=== PATIENT | female | born 1955 | race African-American/Black ===

== ENCOUNTER 2016-12-11 12:42 | Emergency (ER) | payer BC, OTHER ==
[~2016-12-11] VITALS: Ht 165.1 cm; Wt 65.8 kg
[~2016-12-11 12:42] MED LIST: AMLO10TA4 PO; BENA40TA2 PO; GLIM4TAB2 PO; HYDR12.5 PO; METF10002 PO; OMEP20CA4 PO
[2016-12-11 12:56] VITALS: BP 156/93
== END 2016-12-11 13:38 | disposition home or self-care (01) ==
LOC: ER 12:44
DX: H65.92 Unspecified nonsuppurative otitis media, left ear (principal); J06.9 Acute upper respiratory infection, unspecified; I10 Essential (primary) hypertension; E11.9 Type 2 diabetes mellitus without complications; D32.9 Benign neoplasm of meninges, unspecified; Z88.8 Allergy status to other drugs, medicaments and biological substances
CPT/HCPCS: 82962; 99283; A4606; Z7610

== ENCOUNTER 2017-02-07 07:07 | Outpatient (CLI) | payer BC, OTHER ==
[2017-02-07 08:10] LABS: APPEARANCE,URINE CLEAR (CLEAR); BILIRUBIN,URINE NEGATIVE (NEGATIVE); BLOOD, URINE NEGATIVE Ery/uL (NEGATIVE); COLOR,URINE YELLOW (YELLOW); KETONES,URINE NEGATIVE (NEGATIVE); LEUKOCYTE ESTERASE ,URINE NEGATIVE (NEGATIVE); NITRITE, URINE NEGATIVE (NEGATIVE); PROTEIN,URINE NEGATIVE (NEGATIVE); UGLUCOSE 3+ mg/dL (NEGATIVE); UROBILINOGEN,URINE 0.2 EU/dL (0.2)
[2017-02-07 08:12] LABS: BILIRUBIN,TOTAL 0.3 mg/dL (0.2-1.0); CALCIUM, SERUM 9.5 mg/dL (8.5-10.1); CREATININE 0.9 mg/dL (0.6-1.3); POTASSIUM 3.9 mmol/L (3.5-5.1); RBC,URINE 0-2 /HPF (0-2); TOTAL PROTEIN, SERUM 7.7 g/dL (6.4-8.2)
[2017-02-07 08:13] LABS: ADD URINE CULTURE NO; BACTERIA,URINE Few /HPF (None Seen); BASOPHILS % (AUTO) 0.5 % (0.0-2.0); EOSINOPHILS # (AUTO) 0.2 /CMM (0.0-0.7); EOSINOPHILS % (AUTO) 3.7 % (0.0-6.0); HEMATOCRIT 39 % (33-45); LYMPHOCYTES % (AUTO) 42.7 % (20.0-44.0); MEAN CORPUSCULAR HEMOGLOBIN 27 PG (26.0-33.0); MEAN CORPUSCULAR HGB CONC 33 g/dl (31.0-36.0); MEAN CORPUSCULAR VOLUME 82 fL (82-100); MONOCYTES # (AUTO) 0.3 /CMM (0.1-1.30); MONOCYTES % (AUTO) 5.7 % (2.0-12.0); NEUTROPHILS # (AUTO) 2.2 /CMM (1.8-8.9); NEUTROPHILS % (AUTO) 47.4 % (43.0-81.0); PLATELET COUNT (AUTO) 253 /CMM (150-450); RDW COEFFICIENT OF VARIATION 13.7 (11.5-15.0); RED BLOOD CELL COUNT(AUTO) 4.79 MIL/uL (4.0-5.2); WBC,URINE 0-2 /HPF (0-3); WHITE BLOOD COUNT (AUTO) 4.6 K/uL (4.3-11.0)
[2017-02-07 08:27] LABS: INR 0.87 (0.87-1.13); PROTHROMBIN TIME 9.2 SECS (9.5-12.7)
== END 2017-02-07 23:59 | disposition home or self-care (01) ==
LOC: LAB 07:07
PROVIDERS: ATTEND Internal Medicine
DX: Z01.818 Encounter for other preprocedural examination (principal); E11.9 Type 2 diabetes mellitus without complications; I10 Essential (primary) hypertension; D32.9 Benign neoplasm of meninges, unspecified
CPT/HCPCS: 36415; 71020-TC; 80053-TC; 81000-TC; 83735-TC; 85025-TC; 85730-TC

== ENCOUNTER 2017-02-14 11:53 | Inpatient (IN) | payer BC, OTHER ==
[2017-02-14] VITALS: BP 171/69
[~2017-02-14] VITALS: Ht 165.1 cm; Wt 67.1 kg
--- NOTE | 2017-02-14 11:57 | NUR ---
PT BIB SELF NAUSEA AND VOMITING SINCE THIS MORNING. DENIES ABD PAIN OR DIARRHEA. PLACED ON MONITOR. VSS. AWAITING MD ORDER
[2017-02-14] MEDS ORDERED: IV SET PRIMARY PUMP SET 1 EA INFUS.SET MC ONE ×2 (12:17→19:51)
[2017-02-14] MEDS ORDERED: ONDANSETRON HCL/PF 4 MG/2 ML VIAL ONE (12:17)
[2017-02-14] MEDS ORDERED: IV NS 0.9% 1,000 ML ONE (12:17)
--- NOTE | 2017-02-14 12:25 | NUR ---
XRAY AT BEDSIDE
[2017-02-14 12:26] LABS: BASOPHILS # (AUTO) 0.2 /CMM (0.0-0.2); BASOPHILS % (AUTO) 3.1 % (0.0-2.0); EOSINOPHILS % (AUTO) 0.6 % (0.0-6.0); HEMATOCRIT 42 % (33-45); HEMOGLOBIN 13.5 g/dL (11.5-14.8); LYMPHOCYTES # (AUTO) 1.3 /CMM (0.8-4.8); LYMPHOCYTES % (AUTO) 17.5 % (20.0-44.0); MEAN CORPUSCULAR HEMOGLOBIN 27 PG (26.0-33.0); MEAN CORPUSCULAR HGB CONC 33 g/dl (31.0-36.0); MEAN CORPUSCULAR VOLUME 81 fL (82-100); MONOCYTES # (AUTO) 0.2 /CMM (0.1-1.30); MONOCYTES % (AUTO) 2.9 % (2.0-12.0); NEUTROPHILS # (AUTO) 5.9 /CMM (1.8-8.9); NEUTROPHILS % (AUTO) 75.9 % (43.0-81.0); PLATELET COUNT (AUTO) 284 /CMM (150-450); RDW COEFFICIENT OF VARIATION 12.9 (11.5-15.0); WHITE BLOOD COUNT (AUTO) 7.6 K/uL (4.3-11.0)
[2017-02-14] MEDS ORDERED: IV NS 0.9% 1,000 ML BAG IV ONE (12:30)
[2017-02-14] MEDS ORDERED: ONDANSETRON HCL/PF 4 MG/2 ML VIAL IVP ONE (12:30)
--- NOTE | 2017-02-14 12:31 | NUR ---
RAC #18 IV ACCESS PATENT BLOOD SAMPLE COLLECTED SENT TO LAB
[2017-02-14 12:33] LABS: CALCIUM, SERUM 10.2 mg/dL (8.5-10.1); CARBON DIOXIDE 27 mmol/L (21-32); CHLORIDE 102 mmol/L (98-107); CREATININE 0.9 mg/dL (0.6-1.3); GLUCOSE 121 mg/dL (74-106); POTASSIUM 4.1 mmol/L (3.5-5.1); SODIUM SERUM 140 mmol/L (136-145); UREA NITROGEN, BLOOD 20 mg/dL (7-18)
[2017-02-14 12:49] LABS: TROPONIN I < 0.017 ng/mL (0.00-0.056)
--- NOTE | 2017-02-14 14:26 | NUR ---
PT TAKEN TO CT SCAN VIA WC
--- NOTE | 2017-02-14 15:06 | NUR ---
dr andrzej holt paged at [phone] for diaz np
[2017-02-14 15:43] LABS: INR 0.93 (0.87-1.13); PROTHROMBIN TIME 9.9 SECS (9.5-12.7)
--- NOTE | 2017-02-14 16:04 | NUR ---
REPAGED DR. FAZAL BORJA AT [phone]
--- NOTE | 2017-02-14 16:23 | NUR ---
CALLED NURSING SUP. FOR TELE BED
--- NOTE | 2017-02-14 16:29 | NUR ---
PAGED DR.ALI SNEED (PCP)
--- NOTE | 2017-02-14 16:40 | NUR ---
[facility] PAGED, DR. RICCI SALES ACCOUNT SPECIALIST
--- NOTE | 2017-02-14 17:09 | NUR ---
CALLED FOR FOOD TRAY
[2017-02-14] MEDS ORDERED: IV NS 0.9% 1,000 ML IV PRN (17:51)
[2017-02-14] MEDS ORDERED: ONDANSETRON HCL/PF 4 MG/2 ML VIAL IVP PRN ×2 (18:00→18:30)
[2017-02-14] MEDS ORDERED: INSULIN REGULAR, HUMAN 100 UNIT/ML 3 ML VIAL SQ PRN ×2 (18:00→18:30)
[2017-02-14] MEDS ORDERED: MAG HYDROX/AL HYDROX/SIMETH 30 ML UDC PO PRN ×2 (18:00→18:30)
[2017-02-14] MEDS ORDERED: MAGNESIUM HYDROXIDE 30 ML UDC PO PRN ×2 (18:00→18:30)
[2017-02-14] MEDS ORDERED: DEXTROSE 50%-WATER 50 ML DISP.SYRIN IV PRN ×2 (18:00→18:30)
[2017-02-14] MEDS ORDERED: DEXAMETHASONE SOD PHOSPHATE 4 MG/ML VIAL IV SCH (18:00)
[2017-02-14] MEDS ORDERED: ENOXAPARIN SODIUM 40 MG/0.4 ML DISP.SYRIN SQ SCH (18:00)
[2017-02-14] MEDS ORDERED: Z GUARD REMEDY 2 OZ OINT TP PRN ×2 (18:00→18:30)
[2017-02-14] MEDS ORDERED: ACETAMINOPHEN 325 MG TABLET PO PRN (18:00)
[2017-02-14] MEDS ORDERED: HYDROCODONE/APAP 5/325MG 1 EACH TABLET PO PRN ×2 (18:00→18:30)
[2017-02-14] MEDS ORDERED: ZOLPIDEM TARTRATE 5 MG TABLET PO PRN ×2 (18:00→18:30)
--- NOTE | 2017-02-14 18:21 | NUR ---
GIVEN REPORT TO FLORESITA PINA [facility] ROOM [address] DR FLORESITA SHER
[2017-02-14] MEDS: DEXAMETHASONE SOD PHOSPHATE 4 MG/ML VIAL IV SCH (19:21)
--- NOTE | 2017-02-14 19:30 | NUR ---
RN NOTES PT REFUSED DEXAMETHASONE IV, EXPLAINED BENEFITS AND RISK OF MEDICATION, PT STILL REFUSED. CONTINUE TO MONITOR
--- NOTE | 2017-02-14 19:35 | NUR ---
RN INITIAL NOTES PT IS IN BED, A/Ox4, NO SIGNS AND SYMPTOMS OF ACUTE DISTRESS NOTED. ON TELE MONITOR SINUS RHYTHM BBB. AMB AD SETH WITH BRP. ON ROOM AIR SATURATING AT 100%, IV R AC PATENT AND FLUSHED, NO SIGNS OF INFECTION OR INFILTRATION NOTED, NEURO CHECK DONE, PERRLA, ALL EXTREMITIES STRONG, EQUAL AND BILATERAL, CALL LIGHTS WITH REACH.
[2017-02-14 20:00] VITALS: BP 147/78
[2017-02-14] MEDS: IV NS 0.9% 1,000 ML IV PRN (20:54)
[2017-02-14] MEDS: ACETAMINOPHEN 325 MG TABLET PO PRN (20:55)
[2017-02-14] MEDS: METFORMIN 500 MG TABLET PO SCH (20:56)
[2017-02-14] MEDS: BLOOD SUGAR DIAGNOSTIC 1 EACH STRIP IN SCH (21:36)
[2017-02-14] MEDS ORDERED: BLOOD SUGAR DIAGNOSTIC 1 EACH STRIP IN SCH (22:00)
--- NOTE | 2017-02-14 23:00 | NUR ---
RN NOTES PT REQUESTED FOR LENKA, EXPLAINED TO THE PT REGARDING CLOSE MONITORING AND THE NEED FOR FREQUENT ASSESSMENT INCLUDING WAKING HER UP IN DURING SLEEP. PT AGREED.
[2017-02-15] VITALS: BP 171/69
--- NOTE | 2017-02-15 | NUR ---
RN NOTES PT REFUSED DEXAMETHASONE IV, EXPLAINED BENEFITS AND RISK OF MEDICATION, PT STILL REFUSED. CONTINUE TO MONITOR
[2017-02-15 00:35] VITALS: BP 171/69
[2017-02-15 04:00] VITALS: BP 129/62
[2017-02-15] MEDS: DEXAMETHASONE SOD PHOSPHATE 4 MG/ML VIAL IV SCH ×3 (06:00→11:16)
[2017-02-15] MEDS: BLOOD SUGAR DIAGNOSTIC 1 EACH STRIP IN SCH ×2 (06:19→11:16)
[2017-02-15] MEDS: ACETAMINOPHEN 325 MG TABLET PO PRN ×2 (06:39→12:19)
--- NOTE | 2017-02-15 07:15 | NUR ---
RN INITIAL NOTES RECEIVED PT AWAKE, A/OX4. NO RESPIRATORY DISTRESS NOTED. NO SOB NOTED. DENIES ANY PAIN. NO CHANGE IN LOC NOTED. IV LINE ON RAC IN PLACE. TOLERATING NS AT 75ML/HR. PT COMFORTABLE. CLEAN AND DRY. CALL LIGHT WITHIN REACH. WILL CONTINUE TO MONITOR.
[2017-02-15] MEDS ORDERED: PANTOPRAZOLE 40 MG TABLET.DR PO SCH ×2 (07:30)
--- NOTE | 2017-02-15 07:31 | NUR ---
RN END NOTES NO SIGNIFICANT CHANGES OVERNIGHT, PT IS ALERT AND ORIENTED x4, NO SIGNS AND SYMPTOMS OF ANY ACUTE DISTRESS NOTED, PT DENIES NAUSEA AND VOMITING, ALL FOUR EXTREMITIES STRENGTH EQUAL AND BILATERAL. PT STATED WANTING TO GO HOME, AND FEELING BETTER AFTER STAYING OVERNIGHT. ENDORSED TO THE AM NURSE, CALL LIGHTS WITHIN REACH, ALL SAFETY MEASURES MAINTAINED.
[2017-02-15 08:00] VITALS: BP 127/66
[2017-02-15] MEDS: METFORMIN 500 MG TABLET PO SCH (08:07)
[2017-02-15] MEDS ORDERED: METFORMIN 850 MG TABLET PO SCH (09:00)
--- NOTE | 2017-02-15 11:30 | NUR ---
RN NOTES SEEN AND EXAMINED BY DR. FLORESITA IZQUIERDO. AWARE OF CURRENT LAB RESULTS AND IMAGING STUDIES. REMAINS A/OX4. DENIES N/V. NO CHANGE IN LOC NOTED. DENIES ANY PAIN. NO ORDER MADE AT THIS TIME.
[2017-02-15] MEDS: IV NS 0.9% 1,000 ML IV PRN (11:39)
[2017-02-15 12:00] VITALS: BP 147/75
--- NOTE | 2017-02-15 13:08 | NUR ---
RN NOTES SEEN AND EXAMINED BY DR. PINEDA. AWARE OF CURRENT LAB AND IMAGING RESULT. AWARE OF CT HEAD WO CONTRAST FROM DR. CANAS. PER MD, PT DOESN'S NEED ANOTHER CT HEAD WO CONTRAST. MD ORDERED GIVE MECLIZINE X1 THEN MONITOR FOR ANY ASE. IF PT TOLERATES MEDICINE, CLEAR TO DC HOME. NOTED AND CARRIED OUT. PT AWARE.
[2017-02-15] MEDS ORDERED: MECLIZINE HCL 12.5 MG TABLET PO ONE (13:30)
--- NOTE | 2017-02-15 14:00 | NUR ---
RN NOTES NOTIFIED DR. CANAS REGARDING MECLIZINE PRESCRIPTION FOR DISCHARGE PER DR. PINEDA. MD AWARE THAT PT WAS GIVEN ONE TIME DOSE OF MECLIZINE PER DR. PINEDA. NO ASE NOTED. PER DR. CANAS, PT DOESN'T NEED MECLIZINE PRESCRIPTION. PT CLEAR TO DC HOME. PT AWARE. Addendum: 02/15/17 at 1459 by SUELLEN MOLINA RN PT NOTIFIED THAT SHE CAN BE DC TO HOME. DISCHARGE INSTRUCTIONS/HEALTH TEACHINGS GIVEN. EMPHASIZED IMPORTANCE OF COMPLIANT TO MED REGIMEN AND FF UP WITH PCP. PT VERBALIZED UNDERSTANDING. PT AWARE THAT PER DR. FLORESITA IZQUIERDO, SHE DOESNT NEED MECLIZINE. PT INSISTED THAT SHE NEEDS TO HAVE A RX PER DR. PINEDA. PT STATED "THE NEUROLOGIST WONT GIVE IT TO ME IF I DONT NEED IT". CALLED DR. PINEDA. AWAITING CALL BACK.
--- NOTE | 2017-02-15 15:35 | NUR ---
RN NOTES DR. CANAS IN THE UNIT. RX FOR MECLIZINE AND AMBIEN GIVEN TO PT. PT VERBALIZED UNDERSTANDING REGARDING MEDICATIONS. PT LEFT AMBULATORY. ASSISTED BY BHARGAVI TOUSSAINT. NO RESPIRATORY DISTRESS NOTED. NO SOB NOTED. DENIES ANY PAIN. DENIES HEADACHE, N/V. LEFT IN STABLE CONDITION.
[2017-02-15] MEDS ORDERED: ENOXAPARIN SODIUM 40 MG/0.4 ML DISP.SYRIN SQ SCH (18:00)
== END 2017-02-15 15:46 | disposition home or self-care (01) | DRG 641 ==
LOC: ER 11:55 → TELE1 18:39 → TELE-TD 20:47
DX: E86.0 Dehydration (principal); D32.9 Benign neoplasm of meninges, unspecified; I10 Essential (primary) hypertension; E78.5 Hyperlipidemia, unspecified; Z86.73 Personal history of transient ischemic attack (TIA), and cerebral infarction without residual deficits; E11.40 Type 2 diabetes mellitus with diabetic neuropathy, unspecified
CPT/HCPCS: 36415; 70450-TC; 80048-TC; 82962-TC; 84484-TC; 85025-TC; 85610-TC; 97001-TC; A4606; J1100; J2405; J7030; J8597; Z7610

== ENCOUNTER 2017-04-16 08:55 | Outpatient (CLI) | payer BC, OTHER | END 2017-04-16 23:59 | disposition home or self-care (01) | LOC: WOU 08:55 | PROVIDERS: ATTEND Podiatrist Foot & Ankle Surgery | DX: M20.11 Hallux valgus (acquired), right foot (principal); M20.12 Hallux valgus (acquired), left foot; M20.41 Other hammer toe(s) (acquired), right foot; M20.42 Other hammer toe(s) (acquired), left foot; M19.072 Primary osteoarthritis, left ankle and foot; M19.071 Primary osteoarthritis, right ankle and foot; M21.42 Flat foot [pes planus] (acquired), left foot; M21.41 Flat foot [pes planus] (acquired), right foot; B35.1 Tinea unguium | CPT/HCPCS: G0463 ==

== ENCOUNTER 2017-04-19 07:35 | Outpatient (CLI) | payer BC, OTHER | END 2017-04-19 23:59 | disposition home or self-care (01) | LOC: LAB 07:35 → RAD 23:59 | PROVIDERS: ATTEND Podiatrist Foot & Ankle Surgery | DX: M19.072 Primary osteoarthritis, left ankle and foot (principal); M19.071 Primary osteoarthritis, right ankle and foot; M77.51 Other enthesopathy of right foot and ankle; M77.52 Other enthesopathy of left foot and ankle; M21.6X1 Other acquired deformities of right foot; M21.6X2 Other acquired deformities of left foot | CPT/HCPCS: 73630-TC ==

== ENCOUNTER → 2017-05-28 | Outpatient (CLI) | payer BC, OTHER | END | disposition home or self-care (01) | LOC: WOU 13:10 | PROVIDERS: ATTEND Podiatrist Foot & Ankle Surgery | DX: E11.42 Type 2 diabetes mellitus with diabetic polyneuropathy (principal); M21.42 Flat foot [pes planus] (acquired), left foot; M21.41 Flat foot [pes planus] (acquired), right foot; B35.1 Tinea unguium; M19.072 Primary osteoarthritis, left ankle and foot; M19.071 Primary osteoarthritis, right ankle and foot; M77.50 Other enthesopathy of unspecified foot and ankle; M65.879 Other synovitis and tenosynovitis, unspecified ankle and foot; M20.42 Other hammer toe(s) (acquired), left foot; M20.41 Other hammer toe(s) (acquired), right foot; M20.12 Hallux valgus (acquired), left foot; M20.11 Hallux valgus (acquired), right foot; T42.6X5D Adverse effect of other antiepileptic and sedative-hypnotic drugs, subsequent encounter; R60.0 Localized edema | CPT/HCPCS: G0463 ==

== ENCOUNTER 2017-07-16 13:45 | Outpatient (CLI) | payer BC, OTHER | END 2017-07-16 23:59 | disposition home or self-care (01) | LOC: VASLAB 13:45 | PROVIDERS: ATTEND Surgery Vascular Surgery | DX: Z75.3 Unavailability and inaccessibility of health-care facilities (principal) ==

== ENCOUNTER 2017-07-16 14:01 | Outpatient (CLI) | payer BC, OTHER | END 2017-07-16 23:59 | disposition home or self-care (01) | LOC: WOU 14:01 | PROVIDERS: ATTEND Surgery Vascular Surgery | DX: E11.51 Type 2 diabetes mellitus with diabetic peripheral angiopathy without gangrene (principal); I70.223 Atherosclerosis of native arteries of extremities with rest pain, bilateral legs; E11.65 Type 2 diabetes mellitus with hyperglycemia; I10 Essential (primary) hypertension; E78.00 Pure hypercholesterolemia, unspecified; Z79.899 Other long term (current) drug therapy | CPT/HCPCS: G0463 ==

== ENCOUNTER 2017-10-23 08:00 | Outpatient (CLI) | payer BC, OTHER ==
[2017-10-23] MEDS ORDERED: DEXAMETHASONE SOD PHOSPHATE 4 MG/ML VIAL IJ ONE (08:01)
[2017-10-23] MEDS ORDERED: ETHYL CHLORIDE SPRAY 1 EA BOTTLE TP ONE (08:01)
== END 2017-10-23 23:59 | disposition home or self-care (01) ==
LOC: WOU 08:00
PROVIDERS: ATTEND Podiatrist Foot & Ankle Surgery
DX: M19.072 Primary osteoarthritis, left ankle and foot (principal); M19.071 Primary osteoarthritis, right ankle and foot; M20.12 Hallux valgus (acquired), left foot; M20.11 Hallux valgus (acquired), right foot; B35.1 Tinea unguium; M20.42 Other hammer toe(s) (acquired), left foot; M20.41 Other hammer toe(s) (acquired), right foot; L84 Corns and callosities
CPT/HCPCS: 20600; J1100; J3490

== ENCOUNTER 2017-11-08 08:00 | Outpatient (CLI) | payer BC, OTHER | END 2017-11-08 23:59 | disposition home or self-care (01) | LOC: WOU 08:00 | PROVIDERS: ATTEND Podiatrist Foot & Ankle Surgery | DX: M20.22 Hallux rigidus, left foot (principal); M20.21 Hallux rigidus, right foot; M20.12 Hallux valgus (acquired), left foot; M20.11 Hallux valgus (acquired), right foot; E11.9 Type 2 diabetes mellitus without complications | CPT/HCPCS: 20600 ×2; A6402; J3490; J1100 ==

== ENCOUNTER 2017-12-04 07:04 | Outpatient (CLI) | payer BC ==
[2017-12-04] MEDS ORDERED: REGADENOSON 0.4 MG/5 ML DISP.SYRIN IVP ONE (09:00)
== END 2017-12-04 23:59 | disposition home or self-care (01) ==
LOC: NM 07:04
PROVIDERS: ATTEND Internal Medicine Cardiovascular Disease
DX: Z01.818 Encounter for other preprocedural examination (principal); I10 Essential (primary) hypertension; E11.9 Type 2 diabetes mellitus without complications; R07.9 Chest pain, unspecified
CPT/HCPCS: 78452; A9502; J2785

== ENCOUNTER 2017-12-06 09:15 | Outpatient (CLI) | payer BC, OTHER ==
[~2017-12-06 09:15] MED LIST changes: +DEXAMETHASONE SOD PHOSPHATE 4 MG/ML VIAL IJ ONE; +ETHYL CHLORIDE SPRAY 1 EA BOTTLE TP ONE; +LIDOCAINE HCL/PF 1% 30 ML VIAL IJ ONE
== END 2017-12-06 23:59 | disposition home or self-care (01) ==
LOC: WOU 09:15
PROVIDERS: ATTEND Podiatrist Foot & Ankle Surgery
DX: M20.12 Hallux valgus (acquired), left foot (principal); M20.11 Hallux valgus (acquired), right foot; M20.42 Other hammer toe(s) (acquired), left foot; M20.41 Other hammer toe(s) (acquired), right foot; M20.22 Hallux rigidus, left foot; M19.079 Primary osteoarthritis, unspecified ankle and foot
CPT/HCPCS: 20600; A6402; J1100; J3490

== ENCOUNTER 2018-01-06 08:25 | Outpatient (CLI) | payer BC ==
[~2018-01-06 08:25] MED LIST changes: -DEXAMETHASONE SOD PHOSPHATE 4 MG/ML VIAL IJ ONE; -ETHYL CHLORIDE SPRAY 1 EA BOTTLE TP ONE; -LIDOCAINE HCL/PF 1% 30 ML VIAL IJ ONE
[2018-01-06 09:19] LABS: APPEARANCE,URINE CLEAR (CLEAR); BILIRUBIN,URINE NEGATIVE (NEGATIVE); BLOOD, URINE NEGATIVE Ery/uL (NEGATIVE); COLOR,URINE YELLOW (YELLOW); KETONES,URINE NEGATIVE (NEGATIVE); LEUKOCYTE ESTERASE ,URINE 1+ (NEGATIVE); NITRITE, URINE NEGATIVE (NEGATIVE); PH,URINE 5.5 (5.0-8.0); PROTEIN,URINE NEGATIVE (NEGATIVE); UGLUCOSE 3+ mg/dL (NEGATIVE); UROBILINOGEN,URINE 0.2 EU/dL (0.2)
[2018-01-06 09:29] LABS: BASOPHILS # (AUTO) 0.1 /CMM (0.0-0.2); BASOPHILS % (AUTO) 1.2 % (0.0-2.0); EOSINOPHILS # (AUTO) 0.2 /CMM (0.0-0.7); EOSINOPHILS % (AUTO) 2.9 % (0.0-6.0); HEMATOCRIT 41 % (33-45); HEMOGLOBIN 13.8 g/dL (11.5-14.8); LYMPHOCYTES # (AUTO) 2.8 /CMM (0.8-4.8); LYMPHOCYTES % (AUTO) 49.1 % (20.0-44.0); MEAN CORPUSCULAR HEMOGLOBIN 27 PG (26.0-33.0); MEAN CORPUSCULAR HGB CONC 34 g/dl (31.0-36.0); MEAN CORPUSCULAR VOLUME 80 fL (82-100); MONOCYTES # (AUTO) 0.4 /CMM (0.1-1.30); MONOCYTES % (AUTO) 7.3 % (2.0-12.0); NEUTROPHILS # (AUTO) 2.3 /CMM (1.8-8.9); NEUTROPHILS % (AUTO) 39.5 % (43.0-81.0); PLATELET COUNT (AUTO) 305 /CMM (150-450); RDW COEFFICIENT OF VARIATION 12.5 (11.5-15.0); RED BLOOD CELL COUNT(AUTO) 5.06 MIL/uL (4.0-5.2); WHITE BLOOD COUNT (AUTO) 5.7 K/uL (4.3-11.0)
[2018-01-06 09:38] LABS: ALBUMIN 4.3 g/dL (3.4-5.0); BILIRUBIN,TOTAL 0.3 mg/dL (0.2-1.0); CALCIUM, SERUM 10.2 mg/dL (8.5-10.1); POTASSIUM 4.5 mmol/L (3.5-5.1); TOTAL PROTEIN, SERUM 8.5 g/dL (6.4-8.2)
[2018-01-06 10:15] LABS: BACTERIA,URINE Few /HPF (None Seen); RBC,URINE 0-2 /HPF (0-2); SQUAMOUS EPITHELIAL CELL,UR Moderate /HPF (None Seen)
[2018-01-06 10:16] LABS: YEAST,URINE Few /HPF (None Seen)
== END 2018-01-06 23:59 | disposition home or self-care (01) ==
LOC: LAB 08:25
PROVIDERS: ATTEND Internal Medicine
DX: E11.9 Type 2 diabetes mellitus without complications (principal); D32.9 Benign neoplasm of meninges, unspecified; I10 Essential (primary) hypertension; M25.569 Pain in unspecified knee
CPT/HCPCS: 36415; 80053-TC; 80061-TC; 81000-TC; 82306; 84550-TC; 85025-TC; 87086-TC

== ENCOUNTER 2018-05-01 15:42 | Emergency (ER) | payer BC, OTHER ==
[~2018-05-01] VITALS: Ht 165.1 cm; Wt 65.8 kg
[~2018-05-01 15:42] MED LIST changes: -BENA40TA2 PO; +BENA40TA8 PO; -METF10002 PO; +METF10004 PO
[2018-05-01 15:46] VITALS: BP 162/102
--- NOTE | 2018-05-01 15:49 | NUR ---
urine sample collected via clean catch and sent to lab
--- NOTE | 2018-05-01 15:55 | NUR ---
Patient eloped from facility. ER MD notified.
== END 2018-05-01 15:55 | disposition left against medical advice (07) ==
LOC: ER 15:43
DX: Z13.89 Encounter for screening for other disorder (principal); I10 Essential (primary) hypertension; E11.9 Type 2 diabetes mellitus without complications; D32.9 Benign neoplasm of meninges, unspecified; Z88.8 Allergy status to other drugs, medicaments and biological substances; Z79.84 Long term (current) use of oral hypoglycemic drugs
CPT/HCPCS: 80305; 99283; A4606; Z7610; L0172

== ENCOUNTER 2018-06-03 09:04 | Outpatient (CLI) | payer BC, OTHER | END 2018-06-03 23:59 | disposition home or self-care (01) | LOC: WOU 09:04 | PROVIDERS: ATTEND Podiatrist Foot & Ankle Surgery | DX: E11.42 Type 2 diabetes mellitus with diabetic polyneuropathy (principal); M20.5X2 Other deformities of toe(s) (acquired), left foot; M20.5X1 Other deformities of toe(s) (acquired), right foot; M19.072 Primary osteoarthritis, left ankle and foot; M20.42 Other hammer toe(s) (acquired), left foot; M20.41 Other hammer toe(s) (acquired), right foot; L84 Corns and callosities | CPT/HCPCS: 99213; Z7610; G0463 ==

== ENCOUNTER 2018-06-20 10:05 | Outpatient (CLI) | payer BC, OTHER ==
[~2018-06-20 10:05] MED LIST changes: +DEXAMETHASONE SOD PHOSPHATE 4 MG/ML VIAL IJ ONE; +ETHYL CHLORIDE SPRAY 1 EA BOTTLE TP ONE; +LIDOCAINE 1% INJ 50 ML MDV IJ ONE
== END 2018-06-20 23:59 | disposition home or self-care (01) ==
LOC: WOU 10:05
PROVIDERS: ATTEND Podiatrist Foot & Ankle Surgery
DX: M19.072 Primary osteoarthritis, left ankle and foot (principal); M20.5X2 Other deformities of toe(s) (acquired), left foot; M77.52 Other enthesopathy of left foot and ankle; I73.9 Peripheral vascular disease, unspecified; E11.42 Type 2 diabetes mellitus with diabetic polyneuropathy
CPT/HCPCS: 20600; J1100; J3490; Z7610

== ENCOUNTER 2018-06-23 07:35 | Outpatient (CLI) | payer BC ==
[~2018-06-23 07:35] MED LIST changes: -DEXAMETHASONE SOD PHOSPHATE 4 MG/ML VIAL IJ ONE; -ETHYL CHLORIDE SPRAY 1 EA BOTTLE TP ONE; -LIDOCAINE 1% INJ 50 ML MDV IJ ONE
[2018-06-23 08:11] LABS: APPEARANCE,URINE CLEAR (CLEAR); BILIRUBIN,URINE NEGATIVE (NEGATIVE); BLOOD, URINE NEGATIVE Ery/uL (NEGATIVE); COLOR,URINE YELLOW (YELLOW); KETONES,URINE NEGATIVE (NEGATIVE); LEUKOCYTE ESTERASE ,URINE 1+ (NEGATIVE); NITRITE, URINE NEGATIVE (NEGATIVE); PROTEIN,URINE NEGATIVE (NEGATIVE); UGLUCOSE 3+ mg/dL (NEGATIVE); UROBILINOGEN,URINE 0.2 EU/dL (0.2)
[2018-06-23 08:16] LABS: BACTERIA,URINE Few /HPF (None Seen); SQUAMOUS EPITHELIAL CELL,UR Moderate /HPF (None Seen)
[2018-06-23 08:17] LABS: RBC,URINE 0-2 /HPF (0-2)
[2018-06-23 08:20] LABS: BASOPHILS % (AUTO) 0.5 % (0.0-2.0); EOSINOPHILS % (AUTO) 2.1 % (0.0-6.0); HEMATOCRIT 46 % (33-45); HEMOGLOBIN 13.4 g/dL (11.5-14.8); LYMPHOCYTES # (AUTO) 3.1 /CMM (0.8-4.8); LYMPHOCYTES % (AUTO) 52.8 % (20.0-44.0); MEAN CORPUSCULAR HEMOGLOBIN 25 PG (26.0-33.0); MEAN CORPUSCULAR HGB CONC 29 g/dl (31.0-36.0); MEAN CORPUSCULAR VOLUME 84 fL (82-100); MONOCYTES # (AUTO) 0.4 /CMM (0.1-1.30); MONOCYTES % (AUTO) 7.5 % (2.0-12.0); NEUTROPHILS # (AUTO) 2.2 /CMM (1.8-8.9); NEUTROPHILS % (AUTO) 37.1 % (43.0-81.0); PLATELET COUNT (AUTO) 325 /CMM (150-450); RED BLOOD CELL COUNT(AUTO) 5.45 MIL/uL (4.0-5.2); WHITE BLOOD COUNT (AUTO) 5.9 K/uL (4.3-11.0)
[2018-06-23 08:24] LABS: ALBUMIN 4.4 g/dL (3.4-5.0); BILIRUBIN,TOTAL 0.4 mg/dL (0.2-1.0); CALCIUM, SERUM 9.9 mg/dL (8.5-10.1); CREATININE 1.1 mg/dL (0.6-1.3); POTASSIUM 4.3 mmol/L (3.5-5.1)
[2018-06-23 08:32] LABS: THYROID STIMULATING HORMONE 3.686 uIU/mL (0.358-3.74); URIC ACID 4.9 mg/dL (2.6-7.2)
== END 2018-06-23 23:59 | disposition home or self-care (01) ==
LOC: LAB 07:35
PROVIDERS: ATTEND Internal Medicine
DX: E11.9 Type 2 diabetes mellitus without complications (principal); E78.5 Hyperlipidemia, unspecified; I10 Essential (primary) hypertension
CPT/HCPCS: 36415; 80053-TC; 80061-TC; 81000-TC; 84439-TC; 84443-TC; 84550-TC; 85025-TC; 87086-TC

== ENCOUNTER 2018-08-07 13:19 | Outpatient (CLI) | payer BC ==
[~2018-08-07 13:19] MED LIST changes: +METF-442 PO; -METF10004 PO
== END 2018-08-07 23:59 | disposition home or self-care (01) ==
LOC: WOU 13:19
PROVIDERS: ATTEND Surgery
DX: S61.204A Unspecified open wound of right ring finger without damage to nail, initial encounter (principal); X58.XXXA Exposure to other specified factors, initial encounter; Y92.89 Other specified places as the place of occurrence of the external cause; L98.0 Pyogenic granuloma; I10 Essential (primary) hypertension; E78.5 Hyperlipidemia, unspecified; E11.9 Type 2 diabetes mellitus without complications
CPT/HCPCS: 11042; A6402; J3490; Z7610

== ENCOUNTER 2018-08-14 13:35 | Outpatient (CLI) | payer BC | END 2018-08-14 23:59 | disposition home or self-care (01) | LOC: WOU 13:35 | PROVIDERS: ATTEND Surgery | DX: S61.204A Unspecified open wound of right ring finger without damage to nail, initial encounter (principal); X58.XXXA Exposure to other specified factors, initial encounter; Y92.89 Other specified places as the place of occurrence of the external cause; L98.0 Pyogenic granuloma; I73.9 Peripheral vascular disease, unspecified; M20.10 Hallux valgus (acquired), unspecified foot; I10 Essential (primary) hypertension; E11.40 Type 2 diabetes mellitus with diabetic neuropathy, unspecified; E78.5 Hyperlipidemia, unspecified | CPT/HCPCS: 11043; A6402; J3490; Z7610 ==

== ENCOUNTER 2018-11-04 13:00 | Outpatient (CLI) | payer BC | END 2018-11-04 23:59 | disposition home or self-care (01) | LOC: WOU 13:00 | PROVIDERS: ATTEND Podiatrist Foot & Ankle Surgery | DX: M20.10 Hallux valgus (acquired), unspecified foot (principal); M19.90 Unspecified osteoarthritis, unspecified site; E11.42 Type 2 diabetes mellitus with diabetic polyneuropathy; Z79.84 Long term (current) use of oral hypoglycemic drugs; M79.671 Pain in right foot; M79.672 Pain in left foot; R60.9 Edema, unspecified | CPT/HCPCS: 99213; Z7610; G0463 ==

== ENCOUNTER 2018-12-02 07:56 | Outpatient (CLI) | payer BC ==
[2018-12-02 08:45] LABS: BASOPHILS # (AUTO) 0.1 /CMM (0.0-0.2); BASOPHILS % (AUTO) 0.9 % (0.0-2.0); EOSINOPHILS % (AUTO) 2.7 % (0.0-6.0); HEMATOCRIT 42 % (33-45); HEMOGLOBIN 13.7 g/dL (11.5-14.8); LYMPHOCYTES # (AUTO) 3.1 /CMM (0.8-4.8); LYMPHOCYTES % (AUTO) 43.5 % (20.0-44.0); MEAN CORPUSCULAR HGB CONC 33 g/dl (31.0-36.0); MEAN CORPUSCULAR VOLUME 82 fL (82-100); MONOCYTES # (AUTO) 0.4 /CMM (0.1-1.30); MONOCYTES % (AUTO) 6.3 % (2.0-12.0); NEUTROPHILS # (AUTO) 3.3 /CMM (1.8-8.9); NEUTROPHILS % (AUTO) 46.6 % (43.0-81.0); PLATELET COUNT (AUTO) 338 /CMM (150-450); RED BLOOD CELL COUNT(AUTO) 5.05 MIL/uL (4.0-5.2); WHITE BLOOD COUNT (AUTO) 7.1 K/uL (4.3-11.0)
[2018-12-02 08:52] LABS: APPEARANCE,URINE CLEAR (CLEAR); BILIRUBIN,URINE NEGATIVE (NEGATIVE); BLOOD, URINE NEGATIVE Ery/uL (NEGATIVE); COLOR,URINE YELLOW (YELLOW); KETONES,URINE NEGATIVE (NEGATIVE); LEUKOCYTE ESTERASE ,URINE NEGATIVE (NEGATIVE); NITRITE, URINE NEGATIVE (NEGATIVE); PH,URINE 5.5 (5.0-8.0); PROTEIN,URINE NEGATIVE (NEGATIVE); UGLUCOSE 3+ mg/dL (NEGATIVE); UROBILINOGEN,URINE 0.2 EU/dL (0.2)
[2018-12-02 09:09] LABS: ALBUMIN 4.7 g/dL (3.4-5.0); BILIRUBIN,TOTAL 0.5 mg/dL (0.2-1.0); CALCIUM, SERUM 9.9 mg/dL (8.5-10.1); CREATININE 1.1 mg/dL (0.6-1.3); MAGNESIUM 2.1 mg/dL (1.8-2.4); POTASSIUM 4.1 mmol/L (3.5-5.1); TOTAL PROTEIN, SERUM 8.6 g/dL (6.4-8.2)
[2018-12-02 09:24] LABS: BACTERIA,URINE Few /HPF (None Seen); RBC,URINE 0-2 /HPF (0-2); SQUAMOUS EPITHELIAL CELL,UR Moderate /HPF (None Seen)
[2018-12-02 09:36] LABS: THYROID STIMULATING HORMONE 1.669 uIU/mL (0.358-3.74)
== END 2018-12-02 23:59 | disposition home or self-care (01) ==
LOC: LAB 07:56
PROVIDERS: ATTEND Internal Medicine
DX: E11.9 Type 2 diabetes mellitus without complications (principal); I10 Essential (primary) hypertension; K52.9 Noninfective gastroenteritis and colitis, unspecified
CPT/HCPCS: 36415; 80053-TC; 80061-TC; 81000-TC; 82306; 83735-TC; 84439-TC; 84443-TC; 85025-TC; 87045-TC; 87086-TC; 87177; 87209

== ENCOUNTER 2019-02-25 07:35 | Outpatient (CLI) | payer BC ==
[2019-02-25 08:16] LABS: BASOPHILS # (AUTO) 0.1 /CMM (0.0-0.2); BASOPHILS % (AUTO) 0.8 % (0.0-2.0); HEMATOCRIT 39 % (33-45); HEMOGLOBIN 13.2 g/dL (11.5-14.8); LYMPHOCYTES # (AUTO) 2.6 /CMM (0.8-4.8); LYMPHOCYTES % (AUTO) 31.1 % (20.0-44.0); MEAN CORPUSCULAR HGB CONC 33 g/dl (31.0-36.0); MEAN CORPUSCULAR VOLUME 80 fL (82-100); MONOCYTES # (AUTO) 0.5 /CMM (0.1-1.30); MONOCYTES % (AUTO) 5.4 % (2.0-12.0); NEUTROPHILS # (AUTO) 3.1 /CMM (1.8-8.9); NEUTROPHILS % (AUTO) 36.1 % (43.0-81.0); PLATELET COUNT (AUTO) 240 /CMM (150-450); RED BLOOD CELL COUNT(AUTO) 4.93 MIL/uL (4.0-5.2); WHITE BLOOD COUNT (AUTO) 8.5 K/uL (4.3-11.0)
[2019-02-25 08:20] LABS: EOSINOPHILS % (AUTO) 26.6 % (0.0-6.0)
[2019-02-25 08:27] LABS: ALBUMIN 3.9 g/dL (3.4-5.0); BILIRUBIN,TOTAL 0.3 mg/dL (0.2-1.0); CALCIUM, SERUM 9.5 mg/dL (8.5-10.1); CREATININE 0.9 mg/dL (0.6-1.3); POTASSIUM 3.6 mmol/L (3.5-5.1); TOTAL PROTEIN, SERUM 7.5 g/dL (6.4-8.2)
[2019-02-25 08:47] LABS: BAND % (MANUAL) 2 % (0.0-5.0); EOSINOPHILS % (MANUAL) 27 % (0-4); LYMPHOCYTES % (MANUAL) 31 % (16-48); MONOCYTES % (MANUAL) 4 % (0-11.0); NEUTROPHILS % (MANUAL) 36 (42-76)
== END 2019-02-25 23:59 | disposition home or self-care (01) ==
LOC: LAB 07:35
PROVIDERS: ATTEND Internal Medicine
DX: E11.9 Type 2 diabetes mellitus without complications (principal); I10 Essential (primary) hypertension
CPT/HCPCS: 36415; 80053-TC; 80061-TC; 85025-TC

== ENCOUNTER 2019-05-13 07:34 | Outpatient (CLI) | payer BC ==
[2019-05-13 08:56] LABS: APPEARANCE,URINE CLEAR (CLEAR); BILIRUBIN,URINE NEGATIVE (NEGATIVE); BLOOD, URINE NEGATIVE Ery/uL (NEGATIVE); COLOR,URINE YELLOW (YELLOW); KETONES,URINE NEGATIVE (NEGATIVE); LEUKOCYTE ESTERASE ,URINE 1+ (NEGATIVE); NITRITE, URINE NEGATIVE (NEGATIVE); PROTEIN,URINE NEGATIVE (NEGATIVE); UGLUCOSE NEGATIVE (NEGATIVE); UROBILINOGEN,URINE 0.2 EU/dL (0.2)
[2019-05-13 08:58] LABS: BASOPHILS # (AUTO) 0.1 /CMM (0.0-0.2); BASOPHILS % (AUTO) 1.1 % (0.0-2.0); EOSINOPHILS % (AUTO) 3.4 % (0.0-6.0); HEMATOCRIT 39 % (33-45); HEMOGLOBIN 12.8 g/dL (11.5-14.8); LYMPHOCYTES % (AUTO) 37.3 % (20.0-44.0); MEAN CORPUSCULAR HGB CONC 33 g/dl (31.0-36.0); MEAN CORPUSCULAR VOLUME 81 fL (82-100); MONOCYTES # (AUTO) 0.3 /CMM (0.1-1.30); MONOCYTES % (AUTO) 6.1 % (2.0-12.0); NEUTROPHILS # (AUTO) 2.8 /CMM (1.8-8.9); NEUTROPHILS % (AUTO) 52.1 % (43.0-81.0); PLATELET COUNT (AUTO) 294 /CMM (150-450); RED BLOOD CELL COUNT(AUTO) 4.76 MIL/uL (4.0-5.2); WHITE BLOOD COUNT (AUTO) 5.5 K/uL (4.3-11.0)
[2019-05-13 09:09] LABS: ALBUMIN 4.6 g/dL (3.4-5.0); BILIRUBIN,TOTAL 0.4 mg/dL (0.2-1.0); CREATININE 1.2 mg/dL (0.6-1.3); POTASSIUM 3.9 mmol/L (3.5-5.1); TOTAL PROTEIN, SERUM 8.3 g/dL (6.4-8.2)
[2019-05-13 09:20] LABS: SQUAMOUS EPITHELIAL CELL,UR Rare /HPF (None Seen)
[2019-05-13 09:21] LABS: BACTERIA,URINE Rare /HPF (None Seen); RBC,URINE 0-2 /HPF (0-2); WBC,URINE 0-2 /HPF (0-3)
== END 2019-05-13 23:59 | disposition home or self-care (01) ==
LOC: LAB 07:34
DX: E55.9 Vitamin D deficiency, unspecified (principal); E11.9 Type 2 diabetes mellitus without complications; I10 Essential (primary) hypertension
CPT/HCPCS: 36415; 80053-TC; 81000-TC; 82306; 85025-TC; 87086-TC

== ENCOUNTER 2019-05-15 13:15 | Emergency (ER) | payer BC, OTHER ==
[~2019-05-15] VITALS: Ht 165.1 cm; Wt 68.0 kg
[2019-05-15 13:24] VITALS: BP 131/70
[2019-05-15] MEDS ORDERED: IBUPROFEN 600 MG TABLET PO ONE ×2 (13:30→13:34)
== END 2019-05-15 15:00 | disposition home or self-care (01) ==
LOC: ER 13:27
DX: S43.492A Other sprain of left shoulder joint, initial encounter (principal); S80.12XA Contusion of left lower leg, initial encounter; I10 Essential (primary) hypertension; E11.9 Type 2 diabetes mellitus without complications; Z88.6 Allergy status to analgesic agent; Z79.84 Long term (current) use of oral hypoglycemic drugs; Z79.899 Other long term (current) drug therapy; W01.0XXA Fall on same level from slipping, tripping and stumbling without subsequent striking against object, initial encounter; Y93.89 Activity, other specified; Y92.89 Other specified places as the place of occurrence of the external cause; Y99.0 Civilian activity done for income or pay
CPT/HCPCS: 73030-TC

== ENCOUNTER 2019-09-07 07:55 | Outpatient (CLI) | payer BC ==
[2019-09-07 08:44] LABS: APPEARANCE,URINE CLEAR (CLEAR); BASOPHILS % (AUTO) 0.6 % (0.0-2.0); BILIRUBIN,URINE NEGATIVE (NEGATIVE); BLOOD, URINE NEGATIVE Ery/uL (NEGATIVE); COLOR,URINE YELLOW (YELLOW); EOSINOPHILS % (AUTO) 2.7 % (0.0-6.0); HEMATOCRIT 37 % (33-45); HEMOGLOBIN 12.2 g/dL (11.5-14.8); KETONES,URINE NEGATIVE (NEGATIVE); LEUKOCYTE ESTERASE ,URINE SMALL (NEGATIVE); LYMPHOCYTES # (AUTO) 2.1 /CMM (0.8-4.8); LYMPHOCYTES % (AUTO) 31.8 % (20.0-44.0); MEAN CORPUSCULAR HGB CONC 33 g/dl (31.0-36.0); MEAN CORPUSCULAR VOLUME 80 fL (82-100); MONOCYTES # (AUTO) 0.4 /CMM (0.1-1.30); MONOCYTES % (AUTO) 6.2 % (2.0-12.0); NEUTROPHILS # (AUTO) 3.9 /CMM (1.8-8.9); NEUTROPHILS % (AUTO) 58.7 % (43.0-81.0); NITRITE, URINE NEGATIVE (NEGATIVE); PH,URINE 5.5 (5.0-8.0); PLATELET COUNT (AUTO) 322 /CMM (150-450); PROTEIN,URINE NEGATIVE (NEGATIVE); RED BLOOD CELL COUNT(AUTO) 4.66 MIL/uL (4.0-5.2); UGLUCOSE NEGATIVE (NEGATIVE); UROBILINOGEN,URINE 0.2 EU/dL (0.2); WHITE BLOOD COUNT (AUTO) 6.6 K/uL (4.3-11.0)
[2019-09-07 08:56] LABS: BACTERIA,URINE Rare /HPF (None Seen); RBC,URINE 0-2 /HPF (0-2); SQUAMOUS EPITHELIAL CELL,UR Few /HPF (None Seen)
[2019-09-07 09:05] LABS: ALBUMIN 4.1 g/dL (3.4-5.0); BILIRUBIN,TOTAL 0.3 mg/dL (0.2-1.0); CALCIUM, SERUM 9.7 mg/dL (8.5-10.1); CREATININE 0.9 mg/dL (0.6-1.3); MAGNESIUM 1.6 mg/dL (1.8-2.4); POTASSIUM 3.5 mmol/L (3.5-5.1); TOTAL PROTEIN, SERUM 8.1 g/dL (6.4-8.2)
== END 2019-09-07 23:59 | disposition home or self-care (01) ==
LOC: LAB 07:55
DX: E11.9 Type 2 diabetes mellitus without complications (principal); I10 Essential (primary) hypertension; E78.5 Hyperlipidemia, unspecified
CPT/HCPCS: 36415; 80053-TC; 80061-TC; 81000-TC; 83735-TC; 85025-TC; 87086-TC

== ENCOUNTER 2020-02-23 09:18 | Outpatient (CLI) | payer BC ==
[~2020-02-23 09:18] MED LIST changes: -GLIM4TAB2 PO; +GLIM4TAB37 PO
== END 2020-02-23 23:59 | disposition home or self-care (01) ==
LOC: RAD 09:18
DX: J18.9 Pneumonia, unspecified organism (principal)
CPT/HCPCS: 71046

== ENCOUNTER 2020-02-26 07:48 | Outpatient (CLI) | payer BC ==
[2020-02-26 08:46] LABS: BASOPHILS # (AUTO) 0.1 /CMM (0.0-0.2); BASOPHILS % (AUTO) 1.3 % (0.0-2.0); EOSINOPHILS % (AUTO) 2.6 % (0.0-6.0); HEMATOCRIT 35 % (33-45); LYMPHOCYTES # (AUTO) 2.6 /CMM (0.8-4.8); LYMPHOCYTES % (AUTO) 41.2 % (20.0-44.0); MEAN CORPUSCULAR HGB CONC 34 g/dl (31.0-36.0); MEAN CORPUSCULAR VOLUME 79 fL (82-100); MONOCYTES # (AUTO) 0.4 /CMM (0.1-1.30); MONOCYTES % (AUTO) 6.8 % (2.0-12.0); NEUTROPHILS # (AUTO) 3.1 /CMM (1.8-8.9); NEUTROPHILS % (AUTO) 48.1 % (43.0-81.0); PLATELET COUNT (AUTO) 274 /CMM (150-450); RED BLOOD CELL COUNT(AUTO) 4.46 MIL/uL (4.0-5.2); WHITE BLOOD COUNT (AUTO) 6.4 K/uL (4.3-11.0)
[2020-02-26 09:10] LABS: C-REACTIVE PROTEIN < 0.2 mg/dL (0.0-0.9)
[2020-02-26 09:12] LABS: ALANINE AMINOTRANSFERASE 23 U/L (12-78); ALBUMIN 4.1 g/dL (3.4-5.0); ALKALINE PHOSPHATASE 88 U/L (46-116); ASPARTATE AMINOTRANSFERASE 14 U/L (15-37); BILIRUBIN,TOTAL 0.3 mg/dL (0.2-1.0); CALCIUM, SERUM 9.5 mg/dL (8.5-10.1); CARBON DIOXIDE 24 mmol/L (21-32); CHLORIDE 101 mmol/L (98-107); GLUCOSE 171 mg/dL (74-106); MAGNESIUM 1.4 mg/dL (1.8-2.4); POTASSIUM 3.7 mmol/L (3.5-5.1); SODIUM SERUM 137 mmol/L (136-145); UREA NITROGEN, BLOOD 12 mg/dL (7-18)
== END 2020-02-26 23:59 | disposition home or self-care (01) ==
LOC: LAB 07:48
DX: E61.2 Magnesium deficiency (principal); R73.09 Other abnormal glucose; R10.84 Generalized abdominal pain
CPT/HCPCS: 80053-TC; 83735-TC; 85025-TC; 85652-TC; 86140-TC; 86200; 86431-TC

== ENCOUNTER 2020-04-07 10:43 | Emergency (ER) | payer BC, OTHER ==
[~2020-04-07] VITALS: Ht 165.1 cm; Wt 78.0 kg
--- NOTE | 2020-04-07 10:45 | NUR ---
[id number] FROM WORK C/O CHEST PAIN AND DIZZINIESS. ASPIRIN 162 GIVEN FISCAL ANALYST, TO ER BED 4, HOOKED TO MONITOR, CHANGED TO HOSP GOWN, WARM BLANKET PROVIDED. PATIENT AAO x 4, BREATHING EVEN AND UNLABORED. DR MEREDITH AT BEDSIDE
--- NOTE | 2020-04-07 10:57 | NUR ---
PATIENT REFUSED IV PERIPHERAL LINE INSERTION. MD CHANG
[2020-04-07 11:19] LABS: BASOPHILS # (AUTO) 0.1 /CMM (0.0-0.2); BASOPHILS % (AUTO) 0.7 % (0.0-2.0); EOSINOPHILS % (AUTO) 5.9 % (0.0-6.0); HEMATOCRIT 40 % (33-45); HEMOGLOBIN 13.3 g/dL (11.5-14.8); LYMPHOCYTES # (AUTO) 2.1 /CMM (0.8-4.8); LYMPHOCYTES % (AUTO) 22.3 % (20.0-44.0); MEAN CORPUSCULAR HGB CONC 33 g/dl (31.0-36.0); MEAN CORPUSCULAR VOLUME 80 fL (82-100); MONOCYTES # (AUTO) 0.4 /CMM (0.1-1.30); MONOCYTES % (AUTO) 4.6 % (2.0-12.0); NEUTROPHILS # (AUTO) 6.1 /CMM (1.8-8.9); NEUTROPHILS % (AUTO) 66.5 % (43.0-81.0); PLATELET COUNT (AUTO) 279 /CMM (150-450); WHITE BLOOD COUNT (AUTO) 9.2 K/uL (4.3-11.0)
[2020-04-07 11:21] LABS: CALCIUM, SERUM 9.5 mg/dL (8.5-10.1); CARBON DIOXIDE 25 mmol/L (21-32); CHLORIDE 103 mmol/L (98-107); CREATININE 0.9 mg/dL (0.6-1.3); GLUCOSE 291 mg/dL (74-106); POTASSIUM 3.8 mmol/L (3.5-5.1); SODIUM SERUM 136 mmol/L (136-145); UREA NITROGEN, BLOOD 20 mg/dL (7-18)
[2020-04-07 11:32] LABS: ALANINE AMINOTRANSFERASE 20 U/L (12-78); ALBUMIN 3.6 g/dL (3.4-5.0); ALKALINE PHOSPHATASE 117 U/L (46-116); ASPARTATE AMINOTRANSFERASE 12 U/L (15-37); BILIRUBIN,DIRECT 0.1 mg/dL (0.0-0.2); BILIRUBIN,TOTAL 0.2 mg/dL (0.2-1.0); TOTAL PROTEIN, SERUM 6.9 g/dL (6.4-8.2)
--- NOTE | 2020-04-07 12:28 | NUR ---
CORONAVIRUS SWAB DONE AND SENT TO LAB
--- NOTE | 2020-04-07 12:29 | NUR ---
Patient discharged to home in stable condition. Written and verbal after care instructions given. Patient verbalizes understanding of instruction.
[2020-04-07 12:33] VITALS: BP 126/80
== END 2020-04-07 12:34 | disposition home or self-care (01) ==
LOC: ER 10:43
DX: R07.9 Chest pain, unspecified (principal); I44.7 Left bundle-branch block, unspecified; Z82.49 Family history of ischemic heart disease and other diseases of the circulatory system; E11.9 Type 2 diabetes mellitus without complications; Z79.84 Long term (current) use of oral hypoglycemic drugs; Z86.73 Personal history of transient ischemic attack (TIA), and cerebral infarction without residual deficits; Z86.011 Personal history of benign neoplasm of the brain; I10 Essential (primary) hypertension; Z20.828 Contact with and (suspected) exposure to other viral communicable diseases
CPT/HCPCS: 36415; 71045; 80048; 80076; 84484; 85025; 93005; 99285; C9803; U0003

== ENCOUNTER 2020-05-04 09:54 | Day surgery (SDC) | payer BC, OTHER ==
[~2020-05-04] VITALS: Ht 165.1 cm; Wt 73.5 kg
[~2020-05-04 09:54] MED LIST changes: +IOHEXOL-350 100 ML VIAL IV ONE; +IV NS 0.9% 250 ML IV ONE
[2020-05-04] MEDS ORDERED: NITROGLYCERIN 0.4 MG/TAB BOTTLE SL ONE (10:00)
[2020-05-04] MEDS ORDERED: METOPROLOL TARTRATE INJ 5 MG/5 ML AMPUL IVP PRN (10:00)
[2020-05-04 10:49] LABS: CALCIUM, SERUM 10.4 mg/dL (8.5-10.1); POTASSIUM 4.5 mmol/L (3.5-5.1)
[2020-05-04] MEDS ORDERED: METOPROLOL TARTRATE INJ 5 MG/5 ML AMPUL ONE (11:11)
[2020-05-04 11:18] VITALS: BP 146/71
--- NOTE | 2020-05-04 11:20 | NUR ---
RN NOTES: CTA: Patient awake and verbally responsive, scheduled for CTA today, patient verbalizes understanding regarding the procedure, patient signed consent. IV line started at right Ac g20. received order from for [facility] stat.
--- NOTE | 2020-05-04 11:55 | NUR ---
RN NOTES: Post CTA: Patient able to tolerate the procedure well. No discomfort at this time. Patient discharge home in stable condition.
== END 2020-05-04 23:59 | disposition home or self-care (01) ==
LOC: CT 09:54
PROVIDERS: ATTEND Internal Medicine Interventional Cardiology
DX: I25.10 Atherosclerotic heart disease of native coronary artery without angina pectoris (principal); K44.9 Diaphragmatic hernia without obstruction or gangrene
CPT/HCPCS: 36415; 75574; 80048; J3490; J7050; Q9967

== ENCOUNTER 2020-09-02 08:09 | Outpatient (CLI) | payer BC, OTHER ==
[~2020-09-02 08:09] MED LIST changes: -IOHEXOL-350 100 ML VIAL IV ONE; -IV NS 0.9% 250 ML IV ONE
[2020-09-02 09:46] LABS: BASOPHILS # (AUTO) 0.1 /CMM (0.0-0.2); EOSINOPHILS % (AUTO) 2.9 % (0.0-6.0); HEMATOCRIT 37 % (33-45); HEMOGLOBIN 12.4 g/dL (11.5-14.8); LYMPHOCYTES # (AUTO) 2.2 /CMM (0.8-4.8); LYMPHOCYTES % (AUTO) 36.1 % (20.0-44.0); MEAN CORPUSCULAR HGB CONC 33 g/dl (31.0-36.0); MEAN CORPUSCULAR VOLUME 80 fL (82-100); MONOCYTES # (AUTO) 0.4 /CMM (0.1-1.30); NEUTROPHILS # (AUTO) 3.3 /CMM (1.8-8.9); PLATELET COUNT (AUTO) 302 /CMM (150-450); RED BLOOD CELL COUNT(AUTO) 4.66 MIL/uL (4.0-5.2); WHITE BLOOD COUNT (AUTO) 6.1 K/uL (4.3-11.0)
[2020-09-02 10:05] LABS: ALBUMIN 4.4 g/dL (3.4-5.0); BILIRUBIN,TOTAL 0.4 mg/dL (0.2-1.0); CALCIUM, SERUM 10.2 mg/dL (8.5-10.1); CREATININE 0.9 mg/dL (0.6-1.3); MAGNESIUM 1.7 mg/dL (1.8-2.4); POTASSIUM 4.4 mmol/L (3.5-5.1)
[2020-09-02 10:23] LABS: C-REACTIVE PROTEIN 0.4 mg/dL (0.0-0.9); THYROID STIMULATING HORMONE 1.189 uIU/mL (0.358-3.74)
[2020-09-02 10:42] LABS: BILIRUBIN,URINE NEGATIVE (NEGATIVE); BLOOD, URINE NEGATIVE Ery/uL (NEGATIVE); COLOR,URINE YELLOW (YELLOW); LEUKOCYTE ESTERASE ,URINE TRACE (NEGATIVE); NITRITE, URINE NEGATIVE (NEGATIVE); PH,URINE 5.5 (5.0-8.0); PROTEIN,URINE NEGATIVE (NEGATIVE); UGLUCOSE NEGATIVE (NEGATIVE); UROBILINOGEN,URINE 0.2 EU/dL (0.2)
[2020-09-02 14:40] LABS: BACTERIA,URINE Rare /HPF (None Seen); RBC,URINE 0-2 /HPF (0-2); SQUAMOUS EPITHELIAL CELL,UR Rare /HPF (None Seen); WBC,URINE 0-2 /HPF (0-3)
== END 2020-09-02 23:59 | disposition home or self-care (01) ==
LOC: LAB 08:09
DX: I10 Essential (primary) hypertension (principal); E11.9 Type 2 diabetes mellitus without complications; E78.5 Hyperlipidemia, unspecified; M25.762 Osteophyte, left knee; M25.761 Osteophyte, right knee; M16.0 Bilateral primary osteoarthritis of hip
CPT/HCPCS: 36415; 73560-TC; 80053-TC; 80061-TC; 81000-TC; 82728-TC; 83540-TC; 83735-TC; 84443-TC; 85025-TC; 85652-TC; 86140-TC

== ENCOUNTER 2020-12-25 16:45 | Inpatient (IN) | payer BC, MEDICARE, OTHER ==
--- NOTE | 2020-12-25 22:00 | NUR ---
RN OPENING NOTE ADMIT 65 YEAR OLD FEMALE TO [facility] TO [facility] UNIT AT ROOM 103 WITH FOLLOWING DIAGNOSIS:CHEST PAIN AND HISTORY OF ASTHMA,COVID 19 HTN, MENINGIOMA,PT IS ON ROOM AIR O2:98% IV SITE IS ON LEFT AC INTACT PATIENT,IMPLEMENT SAFETY MEASURE,KEEP CALL LIGHT WITHIN REACH,ENDORSE NEXT COMING SHIFT FOR CONTINUATIONS OF CARE.
--- NOTE | 2020-12-25 22:00 | NUR ---
RN NOTES, PATIENT ARRIVING AT THIS TIME IN THE UNIT AND PLACED IN ROOM 103, JANETT COLEMAN TIN CONTAINER STRAIGHTENER ACQUISITIONS EDITOR INFORMED ABOUT PATIENT ADMISSION, AWAITING FOR REPLY.
--- NOTE | 2020-12-25 22:20 | NUR ---
RN NOTES, JANETT Waters REPLIED WITH ORDERS TO FAX THE H&P TO HER, NOTED AND SENT INFORMATION TO HER.
--- NOTE | 2020-12-25 22:38 | NUR ---
RN NOTES, JANETT COLEMAN SALES REPRESENTATIVE [employer] REPLIED THAT SHE WILL PUT ADMISSION ORDERS SOON SHE CAN, AND KEEP PATIENT ON TELE, AND DO PCR SWAB, WILL CONTINUE TO MONITOR PATIENT CLOSELY.
[2020-12-25] MEDS ORDERED: MORPHINE SULFATE INJ 2 MG/ML DISP.SYRIN IV PRN (23:30)
[2020-12-25] MEDS ORDERED: DOCUSATE SODIUM 100 MG CAPSULE PO PRN (23:30)
[2020-12-25] MEDS ORDERED: ACETAMINOPHEN 325 MG TABLET PO PRN (23:30)
[2020-12-25] MEDS ORDERED: NITROGLYCERIN 0.4 MG/TAB BOTTLE SL PRN (23:30)
[2020-12-25] MEDS ORDERED: ONDANSETRON HCL/PF 4 MG/2 ML VIAL IVP PRN (23:30)
[2020-12-25] MEDS ORDERED: MAG HYDROX/AL HYDROX/SIMETH 30 ML UDC PO PRN (23:30)
[2020-12-26] VITALS: BP 138/74
[2020-12-26] MEDS ORDERED: INSULIN REGULAR, HUMAN 100 UNIT/ML 3 ML VIAL SQ PRN
[2020-12-26] MEDS: METOPROLOL SUCCINATE 25 MG TAB.SR.24H PO SCH
[2020-12-26] MEDS ORDERED: DEXTROSE 50%-WATER 50 ML DISP.SYRIN IV PRN
--- NOTE | 2020-12-26 00:14 | NUR ---
RN NOTE PATIENT REFUSES TO TAKE TOPROL-XL SHE SAID THIS MED MAKES HER SICK,NOTIFIED SENIOR ELECTRICAL DESIGN ENGINEER HEAD ATHLETIC TRAINER JANETT COLEMAN CONTINUE TO MONITOR.
--- NOTE | 2020-12-26 00:54 | NUR ---
RN NOTES, PER PATIENT SHES BEING RECEIVING LOVENOX Q12HRS AT 1200 AND 0000, AND REQUESTING IT NOW, INFORMED JARED ROWLAND WEB PRESSMAN FINAL ASSEMBLY WORKER AND PER HER TO CHANGE THE SCHEDULE TO ADMINISTER NOW, AND CONTINUE WITH THE FREQUENCY Q12H, ALSO ASKED HER IF THERE'S ANY PLAN FOR PROCEDURE IN AM WHERE WE CAN HAVE PATIENT NPO/HOLD LOVENOX, PER JANETT NO PLAN FOR PROCURE, AND OK TO GIVE THE LOVENOX AT THIS TIME, NOTED AND CARRIED OUT.
--- NOTE | 2020-12-26 00:55 | NUR ---
RN NOTES, PER JANETT COLEMAN TO RESUME DIET, NO NEED TO KEEP PATIENT NPO.
[2020-12-26] MEDS ORDERED: ENOXAPARIN SODIUM 40 MG/0.4 ML DISP.SYRIN SQ SCH (01:00)
[2020-12-26 04:00] VITALS: BP 129/69
--- NOTE | 2020-12-26 06:42 | NUR ---
RN CLOSING NOTE PATIENT REMAINS ON ALERT ORIENTED X4 VERBALLY RESPONSIVE NO SOB NOT ACUTE DISTRESS NOTED ON ROOM AIR O2:98% IV SITE IS ON LEFT AC INTACT PATENT ALL DUE MEDS GIVEN MD ORDERED KEPT COMFORTABLE ,KEPT CALL LIGHT WITHIN REACH,ENDORSE NEXT COMING SHIFT FOR CONTINUATION OF CARE.
[2020-12-26] MEDS: BLOOD SUGAR DIAGNOSTIC 1 EACH STRIP VI SCH ×4 (07:30→21:49)
[2020-12-26] MEDS: GLIMEPIRIDE 4 MG TABLET PO SCH ×3 (07:30→16:30)
--- NOTE | 2020-12-26 07:30 | NUR ---
RN OPENING NOTE PT AWAKE AND A/Ox4, BREATHING RA SPO2 OF 100%, NO SIGNS OF RESP DISTRESS OR SOB BREATHING EVEN AND UNLABORED. PT DENIES PAIN. PT LT AC #18, FLUSHED, INTACT AND PATENT, NO SIGNS OF INFECTION OR INFILTRATION. PT HAS LT SIDED WEAKNESS FROM TIA IN 2018, BUT IS ABLE TO AMBULATE WITH 1 PERSON ASSISTANCE. PT ALLERGIES NOTED. PT SCHEDULED FOR LT HEART CATH THIS MORNING. ALL SAFETY PRECAUTIONS IN PLACE. WILL CONT TO MONITOR
[2020-12-26 07:46] LABS: BASOPHILS # (AUTO) 0.1 /CMM (0.0-0.2); BASOPHILS % (AUTO) 0.9 % (0.0-2.0); EOSINOPHILS % (AUTO) 1.4 % (0.0-6.0); HEMATOCRIT 35 % (33-45); HEMOGLOBIN 11.8 g/dL (11.5-14.8); LYMPHOCYTES # (AUTO) 3.2 /CMM (0.8-4.8); LYMPHOCYTES % (AUTO) 52.3 % (20.0-44.0); MEAN CORPUSCULAR HGB CONC 34 g/dl (31.0-36.0); MEAN CORPUSCULAR VOLUME 80 fL (82-100); MONOCYTES # (AUTO) 0.5 /CMM (0.1-1.30); MONOCYTES % (AUTO) 8.8 % (2.0-12.0); NEUTROPHILS # (AUTO) 2.2 /CMM (1.8-8.9); NEUTROPHILS % (AUTO) 36.6 % (43.0-81.0); PLATELET COUNT (AUTO) 266 /CMM (150-450); RED BLOOD CELL COUNT(AUTO) 4.37 MIL/uL (4.0-5.2)
[2020-12-26 08:00] VITALS: BP 128/74
[2020-12-26 08:04] LABS: ALBUMIN 3.6 g/dL (3.4-5.0); BILIRUBIN,TOTAL 0.3 mg/dL (0.2-1.0); CALCIUM, SERUM 9.6 mg/dL (8.5-10.1); MAGNESIUM 1.8 mg/dL (1.8-2.4); PHOSPHORUS 3.5 mg/dL (2.5-4.9); TOTAL PROTEIN, SERUM 7.3 g/dL (6.4-8.2)
[2020-12-26] MEDS ORDERED: IV NS 0.9% 1,000 ML ONE (08:35)
[2020-12-26] MEDS ORDERED: IV SET PRIMARY PUMP SET 1 EA INFUS.SET MC ONE (08:35)
[2020-12-26] MEDS ORDERED: VERAPAMIL HCL IV 5 MG/2 ML VIAL ONE (08:36)
[2020-12-26] MEDS ORDERED: IODIXANOL 150 ML IV ONE (08:36)
[2020-12-26] MEDS ORDERED: HEPARIN SODIUM, PORCINE 1,000 UNIT/ML VIAL ONE (08:37)
[2020-12-26] MEDS ORDERED: LIDOCAINE HCL/MPF 1% 30 ML VIAL IJ ONE (08:37)
[2020-12-26] MEDS ORDERED: NITROGLYCERIN ICAR 1,000 MCG/10 ML VIAL ICAR ONE (08:37)
[2020-12-26] MEDS ORDERED: MIDAZOLAM HCL 2 MG/2ML VIAL ONE (08:42)
[2020-12-26] MEDS ORDERED: FENTANYL PF 100MCG/2ML AMPUL ONE (08:42)
[2020-12-26] MEDS ORDERED: METO25TA4 PO (08:43)
[2020-12-26] MEDS ORDERED: SITA1TAB2 PO (08:43)
[2020-12-26] MEDS ORDERED: INSU300I SQ (08:43)
[2020-12-26] MEDS ORDERED: RIVA15TA PO (08:44)
[2020-12-26] MEDS ORDERED: ASPI-1169 PO (08:44)
[2020-12-26 08:50] LABS: THYROID STIMULATING HORMONE 3.815 uIU/mL (0.358-3.74)
[2020-12-26] MEDS ORDERED: OMEPRAZOLE 20 MG CAPSULE.DR PO SCH (09:00)
[2020-12-26] MEDS ORDERED: AMLODIPINE BESYLATE 10 MG TABLET PO SCH (09:00)
[2020-12-26] MEDS ORDERED: BENAZEPRIL HCL 20 MG TABLET PO SCH (09:00)
[2020-12-26] MEDS ORDERED: HYDROCHLOROTHIAZIDE 25 MG TABLET PO SCH (09:00)
[2020-12-26] MEDS ORDERED: ENOXAPARIN SODIUM 80 MG/0.8 ML DISP.SYRIN SQ SCH ×2 (09:00)
[2020-12-26] MEDS ORDERED: BIVALIRUDIN 250 MG/VIAL IV ONE (09:49)
[2020-12-26] MEDS ORDERED: IV NS 0.9% 50 ML IV ONE (09:49)
--- NOTE | 2020-12-26 10:40 | NUR ---
RN NOTE PT RETURNED FROM LT HEART CATH, NO STENTS PLACED PER RN REPORT. PT HAS RFA TR BAND, INSTRUCTED TO REMOVE 3CC AIR Q 15MIN AND REMOVAL AT 1207. NO SIGNS OF BLEEDING AT SIGHT, RT RADIAL PULSE STRONG, SPO2 97%, NO SIGNS OF RESP DISTRESS OR PAIN. WILL CONT TO MONITOR
--- NOTE | 2020-12-26 10:55 | NUR ---
RN NOTE PT RT RADIAL PULSE STRONG AND PRESENT, NO SIGN OF BLEEDING AT SIGHT, BP 135/66, HR 61, SPO2 98%. 3 CC AIR REMOVED FROM RT TR BAND, NO BLEEDING NOTED. PT RT RADIAL PULSE PALPABLE AND STRONG. WILL CONT TO MONITOR
--- NOTE | 2020-12-26 11:10 | NUR ---
RN NOTE PT RT RADIAL PULSE STRONG AND PRESENT, NO SIGN OF BLEEDING AT SIGHT, BP 148/58 WILL ADMIN AM MEDS INCLUDING FOR BP, HR 60, SPO2 99%. 3 CC AIR REMOVED FROM RT TR BAND, NO BLEEDING NOTED. PT RT RADIAL PULSE PALPABLE AND STRONG. WILL CONT TO MONITOR
[2020-12-26] MEDS: BENAZEPRIL HCL 20 MG TABLET PO SCH (11:17)
[2020-12-26] MEDS: METFORMIN 500 MG TABLET PO SCH ×2 (11:18→17:46)
[2020-12-26] MEDS: PANTOPRAZOLE 40 MG TABLET.DR PO SCH (11:20)
[2020-12-26] MEDS: ASPIRIN 81 MG TAB.CHEW PO SCH (11:22)
--- NOTE | 2020-12-26 11:50 | NUR ---
RN NOTE PT RT RADIAL PULSE STRONG AND PRESENT, CAP REFILL UNDER 2 SEC, NO SIGN OF BLEEDING AT SIGHT, BP 141/55, HR 68, SPO2 99%. 3 CC AIR REMOVED FROM RT TR BAND, NO BLEEDING NOTED. PT RT RADIAL PULSE PALPABLE AND STRONG. PT STATES NUMBNESS IN RT WRIST, WILL INFORM SURGEON. WILL CONT TO MONITOR Addendum: 12/26/20 at 1210 by TYRESE TURNER RN DR LIV[place]ON NOTIFIED
[2020-12-26 12:00] VITALS: BP 141/65
--- NOTE | 2020-12-26 12:45 | NUR ---
RN NOTE PT RT RADIAL PULSE STRONG AND PRESENT, NO SIGN OF BLEEDING AT SIGHT, BP 130/54, HR 64, SPO2 99%. 3 CC AIR REMOVED FROM RT TR BAND, NO BLEEDING NOTED, 3 CC REMAINING. PT RT RADIAL PULSE PALPABLE AND STRONG. WILL CONT TO MONITOR
--- NOTE | 2020-12-26 13:10 | NUR ---
RN NOTE PT RT RADIAL PULSE STRONG AND PRESENT, NO SIGN OF BLEEDING AT SIGHT, BP 136/54, HR 66, SPO2 99%. REMAINING 3 CC AIR REMOVED FROM RT TR BAND, NO BLEEDING NOTED, PRESSURE DRSG APPLIED. PT INSTRUCTED TO NOT MOVE/BEND RT ARM FOR 2HRS. PT RT RADIAL PULSE PALPABLE AND STRONG. WILL CONT TO MONITOR FOR BLEED
[2020-12-26] MEDS: *INSULIN REGULAR(HUMULIN R)HUM 100 UNIT/ML VIAL SQ PRN ×2 (13:31→21:52)
[2020-12-26 16:00] VITALS: BP 145/69
[2020-12-26] MEDS ORDERED: RIVAROXABAN 10 MG TABLET PO SCH (17:30)
--- NOTE | 2020-12-26 19:00 | NUR ---
RN OPENING NOTE RECEIVED PATIENT IN BED RESTING ALERT ORIENTED X4 VERBALLY RESPONSIVE,ABLE TO MAKE NEEDS KNOWN,NO SOB NOT ACUTE DISTRESS NOTED SHE IS ON ROOM AIR O2:96%,NO IV ACCESS PATIENT REQUESTED, REPORTED BY PREVIOUS RN,AMBULATORY,CONTINENT BOWEL/BLADDER. KEEP CALL LIGHT WITHIN REACH,BED IN LOW POSITION AND LOCKED,SAFETY MEASURE IMPLEMENT,CONTINUE TO MONITOR.
--- NOTE | 2020-12-26 19:00 | NUR ---
RN CLOSING NOTE PT IN STABLE CONDITION. NO SIGNS OF RESP DISTRESS OR SOB, NO SIGNS OF BLEEDING, PT DENIES PAIN. ALL PT SAFETY PRECAUTIONS IN PLACE. WILL ENDORSE BRENDA TO ONCOMING RN
[2020-12-26 20:00] VITALS: BP 155/76
[2020-12-26] MEDS ORDERED: INSULIN GLARGINE, 100 UNIT/ML CARTRIDGE SQ SCH (22:00)
[2020-12-26] MEDS ORDERED: SIMVASTATIN 20 MG TABLET PO SCH ×2 (22:00)
[2020-12-27] VITALS: BP 122/71
[2020-12-27] MEDS: METOPROLOL SUCCINATE 25 MG TAB.SR.24H PO SCH
--- NOTE | 2020-12-27 00:22 | NUR ---
RN NOTE PATIENT REFUSES TO TAKE TOPROL-XL SHE SAID THIS MED MAKES HER SICK,NOTIFIED BROADCAST DIRECTOR OPERATIONS IT PROJECT MANAGER JANETT COLEMAN CONTINUE TO MONITOR.
[2020-12-27 04:00] VITALS: BP 123/72
--- NOTE | 2020-12-27 06:30 | NUR ---
RN CLOSING NOTE PATIENT REMAINS ON ALERT ORIENTED X4 VERBALLY RESPONSIVE NO SOB NOT ACUTE DISTRESS NOTED ON ROOM AIR O2:98%,AMBULATORY,CONTINENT TO BOWEL AND BLADDER,NO IV ACCESS,ALL DUE MEDS GIVEN MD ORDERED,KEPT CALL LIGHT WITHIN REACH,KEPT COMFORTABLE,ALL NEEDS MET.ENDORSE NEXT COMING SHIFT FOR CONTINUATION OF CARE.
[2020-12-27] MEDS: GLIMEPIRIDE 4 MG TABLET PO SCH (07:30)
--- NOTE | 2020-12-27 07:49 | NUR ---
DRIP PUMPER NOTE PATIENT IN BED , ALL NEEDS ATTENDED ALERT ,ORIENTED NO SOB NOTED AT THIS TIME .NO HL AT THIS TIME , BED IN LOWEST AND LOCKED POSITION , CALL LIGHT WITHIN REACH
[2020-12-27 08:00] VITALS: BP 154/77
[2020-12-27] MEDS: PANTOPRAZOLE 40 MG TABLET.DR PO SCH (08:20)
[2020-12-27] MEDS: METFORMIN 500 MG TABLET PO SCH (08:20)
[2020-12-27] MEDS: ASPIRIN 81 MG TAB.CHEW PO SCH (08:20)
[2020-12-27] MEDS: BENAZEPRIL HCL 20 MG TABLET PO SCH (08:20)
[2020-12-27] MEDS: BLOOD SUGAR DIAGNOSTIC 1 EACH STRIP VI SCH (08:21)
[2020-12-27] MEDS ORDERED: AMLODIPINE BESYLATE 10 MG TABLET PO SCH (09:00)
[2020-12-27] MEDS ORDERED: METO25TA4 PO (09:56)
[2020-12-27] MEDS ORDERED: BENA40TA67 PO ×2 (09:56→11:19)
[2020-12-27] MEDS ORDERED: TEMA15CA5 PO (09:56)
[2020-12-27] MEDS ORDERED: HYDR12.55 PO (11:19)
[2020-12-27 12:00] VITALS: BP 139/68
--- NOTE | 2020-12-27 12:15 | NUR ---
RN NOTE 0815: Received patient A/Ox4. No c/o discomfort at this time. 0900: Diet and meds tolerated well refused Amaryl. 0930: S/E by Dr. Vallecillo, discussed re: ,eds. 1000: [facility], verifying re: the meds. 1130: Discussed with pt re: DC instructions and meds, Verified with Dr. Vallecillo re: amlodipine, to continue per MD, made patient aware. securities and real estate director spoke with patient re: Sun, agreed that patient will get meds from [facility] pharmacy. 1215: Patient having lunch, getting ready for DC.
--- NOTE | 2020-12-27 12:52 | NUR ---
RN NOTE Discharged patient in good condition. VSS. No c/o discomfort. Accompanied patient to lobby via wheelchair. No PIV. Understood DC instructions and meds.
== END 2020-12-27 12:48 | disposition home or self-care (01) | DRG 287 ==
LOC: TELE1 21:52 → MEDSG1 12-27 08:15
PROVIDERS: ADMIT Registered Nurse; ATTEND Nurse Practitioner Acute Care
PROC: 4A023N7 Measurement of Cardiac Sampling and Pressure, Left Heart, Percutaneous Approach (ICD-10-PCS; principal; 2020-12-26)
PROC: B211YZZ Fluoroscopy of Multiple Coronary Arteries using Other Contrast (ICD-10-PCS; 2020-12-26)
DX: I25.110 Atherosclerotic heart disease of native coronary artery with unstable angina pectoris (principal); E11.51 Type 2 diabetes mellitus with diabetic peripheral angiopathy without gangrene; R07.89 Other chest pain; I10 Essential (primary) hypertension; E78.5 Hyperlipidemia, unspecified; Z87.891 Personal history of nicotine dependence; Z86.73 Personal history of transient ischemic attack (TIA), and cerebral infarction without residual deficits; E11.65 Type 2 diabetes mellitus with hyperglycemia; I44.7 Left bundle-branch block, unspecified; J45.909 Unspecified asthma, uncomplicated; Z86.16 Personal history of COVID-19; D32.9 Benign neoplasm of meninges, unspecified; R07.81 Pleurodynia; R42 Dizziness and giddiness; Z79.4 Long term (current) use of insulin; Z86.711 Personal history of pulmonary embolism; Z20.822 Contact with and (suspected) exposure to COVID-19
CPT/HCPCS: 36415; 80053-TC; 80061-TC; 82962-TC; 83735-TC; 84100-TC; 84443-TC; 84484-TC; 85025-TC; 87081-TC; 93307-TC; C1769; C1887; G0378; G0500; J1644; J1650; J1815; J2250; J2270; J3010; J3490; Q9967; U0003

== ENCOUNTER 2021-01-06 11:25 | Outpatient (CLI) | payer BC, MEDICARE ==
[~2021-01-06 11:25] MED LIST changes: -AMLO10TA4 PO; +ASPI-1169 PO; +BENA40TA67 PO; -BENA40TA8 PO; -GLIM4TAB37 PO; +HYDR12.55 PO; +INSU300I SQ; -METF-442 PO; +METO25TA4 PO; -OMEP20CA4 PO; +SITA1TAB2 PO; +TEMA15CA5 PO
[2021-01-06 12:59] LABS: BASOPHILS % (AUTO) 0.8 % (0.0-2.0); EOSINOPHILS % (AUTO) 1.4 % (0.0-6.0); HEMATOCRIT 35 % (33-45); HEMOGLOBIN 11.5 g/dL (11.5-14.8); LYMPHOCYTES # (AUTO) 1.5 /CMM (0.8-4.8); LYMPHOCYTES % (AUTO) 25.7 % (20.0-44.0); MEAN CORPUSCULAR HGB CONC 33 g/dl (31.0-36.0); MEAN CORPUSCULAR VOLUME 80 fL (82-100); MONOCYTES # (AUTO) 0.3 /CMM (0.1-1.30); MONOCYTES % (AUTO) 5.7 % (2.0-12.0); NEUTROPHILS % (AUTO) 66.4 % (43.0-81.0); PLATELET COUNT (AUTO) 299 /CMM (150-450); RED BLOOD CELL COUNT(AUTO) 4.37 MIL/uL (4.0-5.2)
[2021-01-06 13:14] LABS: THYROID STIMULATING HORMONE 2.281 uIU/mL (0.358-3.74)
[2021-01-06 13:30] LABS: ALBUMIN 4.1 g/dL (3.4-5.0); BILIRUBIN,TOTAL 0.3 mg/dL (0.2-1.0); CALCIUM, SERUM 9.8 mg/dL (8.5-10.1); CREATININE 1.1 mg/dL (0.6-1.3); POTASSIUM 4.6 mmol/L (3.5-5.1)
[2021-01-08 16:07] LABS: *DILUTE PROTHROMBIN TIME (dPT) 35.4 sec (0.0-55.0); *THROMBIN TIME 18.2 sec (0.0-23.0); *dPT CONFIRM RATIO 0.87 Ratio (0.00-1.40); *dRVVT 43.3 sec (0.0-47.0)
[2021-01-09 14:06] LABS: *CARD ANTI-CARDIOLIPIN AB IgG <9 GPL U/mL (0-14); *CARD ANTI-CARDIOLIPIN AB IgM <9 MPL U/mL (0-12)
[2021-01-12 16:07] LABS: *FACTOR II, DNA ANALYSIS Negative (.)
== END 2021-01-06 23:59 | disposition home or self-care (01) ==
LOC: LAB 11:25
PROVIDERS: ATTEND Internal Medicine Hematology & Oncology
DX: D64.9 Anemia, unspecified (principal); Z00.00 Encounter for general adult medical examination without abnormal findings
CPT/HCPCS: 36415; 80053-TC; 81240; 81241; 82607-TC; 82728-TC; 83090; 83540-TC; 84443-TC; 85025-TC; 85300; 85378-TC; 85613; 85670; 85705; 85732; 86147

== ENCOUNTER 2021-01-17 11:29 | Outpatient (CLI) | payer BC, MEDICARE | END 2021-01-17 23:59 | disposition home or self-care (01) | LOC: LAB 11:29 | PROVIDERS: ATTEND Internal Medicine Hematology & Oncology | DX: I26.99 Other pulmonary embolism without acute cor pulmonale (principal) | CPT/HCPCS: 36415 ==

== ENCOUNTER 2021-04-19 07:51 | Outpatient (CLI) | payer BC, MEDICARE ==
[2021-04-19 08:29] LABS: CALCIUM, SERUM 9.6 mg/dL (8.5-10.1)
[2021-04-19] MEDS ORDERED: IOHEXOL-350 100 ML VIAL IV ONE (09:18)
[2021-04-19] MEDS ORDERED: IV NS 0.9% 250 ML IV ONE (09:19)
[2021-04-19] MEDS ORDERED: CT SWABBABLE VALVE TRANS SET 1 EA INFUS.SET MC ONE (09:19)
== END 2021-04-19 23:59 | disposition home or self-care (01) ==
LOC: CT 07:51
PROVIDERS: ATTEND Internal Medicine Hematology & Oncology
DX: I25.10 Atherosclerotic heart disease of native coronary artery without angina pectoris (principal); I70.0 Atherosclerosis of aorta; I26.99 Other pulmonary embolism without acute cor pulmonale; J98.4 Other disorders of lung; R91.1 Solitary pulmonary nodule; J84.10 Pulmonary fibrosis, unspecified; K76.0 Fatty (change of) liver, not elsewhere classified; M47.813 Spondylosis without myelopathy or radiculopathy, cervicothoracic region; M47.816 Spondylosis without myelopathy or radiculopathy, lumbar region
CPT/HCPCS: 36415; 71275; 80048; J7050; Q9967

== ENCOUNTER 2021-04-28 10:37 | Outpatient (CLI) | payer BC, MEDICARE | END 2021-04-28 23:59 | disposition home or self-care (01) | LOC: MRI 10:37 | PROVIDERS: ATTEND Student in an Organized Health Care Education/Training Program | DX: S83.282A Other tear of lateral meniscus, current injury, left knee, initial encounter (principal); M25.462 Effusion, left knee; M71.22 Synovial cyst of popliteal space [Baker], left knee; M65.862 Other synovitis and tenosynovitis, left lower leg; X58.XXXA Exposure to other specified factors, initial encounter; Y93.89 Activity, other specified; Y92.89 Other specified places as the place of occurrence of the external cause; Y99.8 Other external cause status | CPT/HCPCS: 73721-TC ==

== ENCOUNTER 2021-06-02 09:18 | Outpatient (CLI) | payer BC, MEDICARE ==
[2021-06-02 10:11] LABS: CALCIUM, SERUM 9.8 mg/dL (8.5-10.1); POTASSIUM 4.5 mmol/L (3.5-5.1)
[2021-06-02] MEDS ORDERED: CT SWABBABLE VALVE TRANS SET 1 EA INFUS.SET MC ONE (10:51)
[2021-06-02] MEDS ORDERED: IOHEXOL-350 100 ML VIAL IV ONE (10:51)
[2021-06-02] MEDS ORDERED: IV NS 0.9% 250 ML IV ONE (10:51)
== END 2021-06-02 23:59 | disposition home or self-care (01) ==
LOC: LAB 09:18
PROVIDERS: ATTEND Internal Medicine Hematology & Oncology
DX: K44.9 Diaphragmatic hernia without obstruction or gangrene (principal); I70.0 Atherosclerosis of aorta; K76.9 Liver disease, unspecified
CPT/HCPCS: 36415; 74170; 80048; J7050; Q9967

== ENCOUNTER 2021-07-19 12:52 | Outpatient (CLI) | payer BC, MEDICARE ==
[2021-07-19] MEDS ORDERED: GADOTERATE MEGLUMINE 10 MMOL/20 ML VIAL IV ONE (12:53)
== END 2021-07-19 23:59 | disposition home or self-care (01) ==
LOC: MRI 12:52
DX: D32.9 Benign neoplasm of meninges, unspecified (principal)
CPT/HCPCS: 70544; 70553; A9575

== ENCOUNTER 2022-03-20 11:20 | Outpatient (CLI) | payer BC, MEDICARE ==
[2022-03-20 12:09] LABS: BASOPHILS % (AUTO) 0.7 % (0.0-2.0); EOSINOPHILS % (AUTO) 1.4 % (0.0-6.0); HEMATOCRIT 37 % (33-45); HEMOGLOBIN 12.2 g/dL (11.5-14.8); LYMPHOCYTES # (AUTO) 2.3 K/uL (0.8-4.8); LYMPHOCYTES % (AUTO) 34.9 % (20.0-44.0); MEAN CORPUSCULAR HGB CONC 33 g/dl (31.0-36.0); MEAN CORPUSCULAR VOLUME 79 fL (82-100); MONOCYTES # (AUTO) 0.4 K/uL (0.1-1.30); MONOCYTES % (AUTO) 6.2 % (2.0-12.0); NEUTROPHILS # (AUTO) 3.7 K/uL (1.8-8.9); NEUTROPHILS % (AUTO) 56.8 % (43.0-81.0); PLATELET COUNT (AUTO) 266 K/uL (150-450); RED BLOOD CELL COUNT(AUTO) 4.68 MIL/uL (4.0-5.2); WHITE BLOOD COUNT (AUTO) 6.6 K/uL (4.3-11.0)
[2022-03-20 12:29] LABS: CREATININE 1.2 mg/dL (0.6-1.3); POTASSIUM 4.1 mmol/L (3.5-5.1)
== END 2022-03-20 23:59 | disposition home or self-care (01) ==
LOC: LAB 11:20
PROVIDERS: ATTEND Internal Medicine
DX: E11.9 Type 2 diabetes mellitus without complications (principal); R07.89 Other chest pain
CPT/HCPCS: 36415; 80048-TC; 85025-TC; 85378-TC

== ENCOUNTER 2022-04-12 10:30 | Outpatient (CLI) | payer BC, MEDICARE ==
[2022-04-12] MEDS ORDERED: GADOTERATE MEGLUMINE 10 MMOL/20 ML VIAL IV ONE (10:31)
== END 2022-04-12 23:59 | disposition home or self-care (01) ==
LOC: MRI 10:30
PROVIDERS: ATTEND Internal Medicine
DX: K76.89 Other specified diseases of liver (principal)
CPT/HCPCS: 74183; A9575

== ENCOUNTER 2022-04-24 11:06 | Outpatient (CLI) | payer BC, MEDICARE ==
[2022-04-24] MEDS ORDERED: GADOTERATE MEGLUMINE 10 MMOL/20 ML VIAL IV ONE (11:07)
== END 2022-04-24 23:59 | disposition home or self-care (01) ==
LOC: MRI 11:06
PROVIDERS: ATTEND Internal Medicine
DX: G31.9 Degenerative disease of nervous system, unspecified (principal); G93.89 Other specified disorders of brain; R51.9 Headache, unspecified
CPT/HCPCS: 70553; A9575

== ENCOUNTER 2022-08-17 07:45 | Outpatient (CLI) | payer BC, MEDICARE ==
[2022-08-17 08:27] LABS: BASOPHILS # (AUTO) 0.1 K/uL (0.0-0.2); EOSINOPHILS % (AUTO) 2.9 % (0.0-6.0); HEMATOCRIT 36 % (33-45); HEMOGLOBIN 11.9 g/dL (11.5-14.8); LYMPHOCYTES % (AUTO) 37.2 % (20.0-44.0); MEAN CORPUSCULAR HGB CONC 33 g/dl (31.0-36.0); MEAN CORPUSCULAR VOLUME 81 fL (82-100); MONOCYTES # (AUTO) 0.5 K/uL (0.1-1.30); MONOCYTES % (AUTO) 8.8 % (2.0-12.0); NEUTROPHILS # (AUTO) 2.7 K/uL (1.8-8.9); NEUTROPHILS % (AUTO) 50.1 % (43.0-81.0); PLATELET COUNT (AUTO) 277 K/uL (150-450); RED BLOOD CELL COUNT(AUTO) 4.49 MIL/uL (4.0-5.2); WHITE BLOOD COUNT (AUTO) 5.4 K/uL (4.3-11.0)
[2022-08-17 08:43] LABS: ALANINE AMINOTRANSFERASE 26 U/L (12-78); ALKALINE PHOSPHATASE 101 U/L (46-116); ASPARTATE AMINOTRANSFERASE 13 U/L (15-37); BILIRUBIN,TOTAL 0.3 mg/dL (0.2-1.0); CALCIUM, SERUM 9.8 mg/dL (8.5-10.1); CARBON DIOXIDE 29 mmol/L (21-32); CHLORIDE 104 mmol/L (98-107); CREATININE 1.1 mg/dL (0.6-1.3); GLUCOSE 107 mg/dL (74-106); MAGNESIUM 1.9 mg/dL (1.8-2.4); SODIUM SERUM 140 mmol/L (136-145); TOTAL PROTEIN, SERUM 7.7 g/dL (6.4-8.2); UREA NITROGEN, BLOOD 18 mg/dL (7-18)
[2022-08-17 09:00] LABS: C-REACTIVE PROTEIN < 0.2 mg/dL (0.0-0.9); CHOLESTEROL 266 mg/dL (<200); FERRITIN 18 ng/mL (8-388); HDL CHOLESTEROL 54 mg/dL (40-60); IRON, SERUM 61 ug/dl (50-175); LDL 169 mg/dL (0-99); THYROID STIMULATING HORMONE 1.526 uIU/mL (0.358-3.74); TRIGLYCERIDES 129 mg/dL (30-150)
== END 2022-08-17 23:59 | disposition home or self-care (01) ==
LOC: LAB 07:45
PROVIDERS: ATTEND Internal Medicine
DX: Z13.220 Encounter for screening for lipoid disorders (principal); E11.9 Type 2 diabetes mellitus without complications; R94.6 Abnormal results of thyroid function studies
CPT/HCPCS: 36415; 80048-TC; 80053-TC; 80061-TC; 82728-TC; 83540-TC; 83735-TC; 84443-TC; 85025-TC; 85652-TC; 86140-TC

== ENCOUNTER 2022-08-17 11:04 | Outpatient (CLI) | payer BC, MEDICARE | END 2022-08-17 23:59 | disposition home or self-care (01) | LOC: US 11:04 | PROVIDERS: ATTEND Internal Medicine | DX: E04.2 Nontoxic multinodular goiter (principal) | CPT/HCPCS: 76536-TC ==

== ENCOUNTER 2023-01-01 07:30 | Outpatient (CLI) | payer BC, MEDICARE ==
[2023-01-01 08:38] LABS: BASOPHILS % (AUTO) 0.7 % (0.0-2.0); EOSINOPHILS % (AUTO) 2.4 % (0.0-6.0); HEMATOCRIT 40 % (33-45); HEMOGLOBIN 12.4 g/dL (11.5-14.8); LYMPHOCYTES # (AUTO) 2.2 K/uL (0.8-4.8); LYMPHOCYTES % (AUTO) 35.6 % (20.0-44.0); MEAN CORPUSCULAR HGB CONC 31 g/dl (31.0-36.0); MEAN CORPUSCULAR VOLUME 83 fL (82-100); MONOCYTES # (AUTO) 0.5 K/uL (0.1-1.30); MONOCYTES % (AUTO) 8.4 % (2.0-12.0); NEUTROPHILS # (AUTO) 3.3 K/uL (1.8-8.9); NEUTROPHILS % (AUTO) 52.9 % (43.0-81.0); PLATELET COUNT (AUTO) 279 K/uL (150-450); RED BLOOD CELL COUNT(AUTO) 4.78 MIL/uL (4.0-5.2); WHITE BLOOD COUNT (AUTO) 6.3 K/uL (4.3-11.0)
[2023-01-01 08:47] LABS: BILIRUBIN,URINE NEGATIVE (NEGATIVE); COLOR,URINE YELLOW (YELLOW); LEUKOCYTE ESTERASE ,URINE NEGATIVE (NEGATIVE); NITRITE, URINE NEGATIVE (NEGATIVE); PH,URINE 5.5 (5.0-8.0); PROTEIN,URINE NEGATIVE (NEGATIVE); UGLUCOSE 3+ mg/dL (NEGATIVE); UROBILINOGEN,URINE 0.2 EU/dL (0.2)
[2023-01-01 08:56] LABS: BACTERIA,URINE Rare /HPF (None Seen); RBC,URINE 0-2 /HPF (0-2); SQUAMOUS EPITHELIAL CELL,UR Few /HPF (None Seen); WBC,URINE 0-2 /HPF (0-3)
[2023-01-01 09:09] LABS: URIC ACID 4.4 mg/dL (2.6-7.2)
[2023-01-01 09:10] LABS: ALBUMIN 4.1 g/dL (3.4-5.0); BILIRUBIN,TOTAL 0.3 mg/dL (0.2-1.0); CALCIUM, SERUM 9.7 mg/dL (8.5-10.1); CREATININE 1.2 mg/dL (0.6-1.3); MAGNESIUM 2.2 mg/dL (1.8-2.4); POTASSIUM 3.8 mmol/L (3.5-5.1); TOTAL PROTEIN, SERUM 7.8 g/dL (6.4-8.2)
[2023-01-01 09:53] LABS: C-REACTIVE PROTEIN 0.2 mg/dL (0.0-0.9)
== END 2023-01-01 23:59 | disposition home or self-care (01) ==
LOC: LAB 07:30
PROVIDERS: ATTEND Internal Medicine
DX: Z00.00 Encounter for general adult medical examination without abnormal findings (principal); E11.9 Type 2 diabetes mellitus without complications; I10 Essential (primary) hypertension
CPT/HCPCS: 36415; 80053-TC; 80061-TC; 81001; 82728-TC; 83735-TC; 84550-TC; 85025-TC; 86140-TC; 87086-TC

== ENCOUNTER 2023-02-06 15:27 | Emergency (ER) | payer BC, OTHER ==
[~2023-02-06] VITALS: Ht 165.1 cm; Wt 73.9 kg
--- NOTE | 2023-02-06 15:55 | NUR ---
Patient AOx4 able to express her own concerns. Patient with no signs of distress, discussed plan of care. Patient verbalized agreement. All safety preautions taken.
[2023-02-06 16:19] LABS: BASOPHILS % (AUTO) 0.4 % (0.0-2.0); EOSINOPHILS % (AUTO) 3.6 % (0.0-6.0); HEMATOCRIT 37 % (33-45); HEMOGLOBIN 12.4 g/dL (11.5-14.8); LYMPHOCYTES # (AUTO) 2.1 K/uL (0.8-4.8); LYMPHOCYTES % (AUTO) 34.9 % (20.0-44.0); MEAN CORPUSCULAR HGB CONC 33 g/dl (31.0-36.0); MEAN CORPUSCULAR VOLUME 79 fL (82-100); MONOCYTES # (AUTO) 0.4 K/uL (0.1-1.30); MONOCYTES % (AUTO) 7.1 % (2.0-12.0); NEUTROPHILS # (AUTO) 3.3 K/uL (1.8-8.9); PLATELET COUNT (AUTO) 286 K/uL (150-450); WHITE BLOOD COUNT (AUTO) 6.1 K/uL (4.3-11.0)
--- NOTE | 2023-02-06 16:40 | NUR ---
Ptient AOx4, no signs of distress. VSS.
[2023-02-06 16:48] LABS: CARBON DIOXIDE 28 mmol/L (21-32); CHLORIDE 106 mmol/L (98-107); GLUCOSE 88 mg/dL (74-106); POTASSIUM 4.2 mmol/L (3.5-5.1); SODIUM SERUM 141 mmol/L (136-145); UREA NITROGEN, BLOOD 17 mg/dL (7-18)
--- NOTE | 2023-02-06 19:01 | NUR ---
Patient discharged to home in stable condition. Written and verbal after care instructions given. Patient verbalizes understanding of instruction.IV removed. Catheter intact and site benign. Pressure and 4x4 applied to site. No bleeding noted.
[2023-02-06 19:02] VITALS: BP 122/74
== END 2023-02-06 19:03 | disposition home or self-care (01) ==
LOC: ER 15:30
DX: R07.9 Chest pain, unspecified (principal); I10 Essential (primary) hypertension; E11.9 Type 2 diabetes mellitus without complications; Z88.8 Allergy status to other drugs, medicaments and biological substances; Z91.018 Allergy to other foods; Z79.899 Other long term (current) drug therapy
CPT/HCPCS: 36415; 71045-TC; 80048-TC; 83880; 84484-TC; 85025-TC

== ENCOUNTER 2025-02-22 15:53 | Emergency (ER) | payer BC ==
[~2025-02-22] VITALS: Ht 165.1 cm; Wt 69.4 kg
[2025-02-22 16:03] VITALS: BP 157/81; TEMP 98.3
[2025-02-22 18:34] VITALS: O2SAT 98
== END 2025-02-22 18:34 | disposition home or self-care (01) ==
LOC: ER 16:07
DX: S63.591A Other specified sprain of right wrist, initial encounter (principal); S00.83XA Contusion of other part of head, initial encounter; I10 Essential (primary) hypertension; E11.9 Type 2 diabetes mellitus without complications; Z79.02 Long term (current) use of antithrombotics/antiplatelets; Z79.82 Long term (current) use of aspirin; Z79.84 Long term (current) use of oral hypoglycemic drugs; Z79.899 Other long term (current) drug therapy; Z86.73 Personal history of transient ischemic attack (TIA), and cerebral infarction without residual deficits; Z88.5 Allergy status to narcotic agent; W01.0XXA Fall on same level from slipping, tripping and stumbling without subsequent striking against object, initial encounter; Y93.89 Activity, other specified; Y92.89 Other specified places as the place of occurrence of the external cause; Y99.8 Other external cause status
CPT/HCPCS: 70450-TC; 70486-TC; 72125-TC; 73110